=== PATIENT | female | born 1990 | race Caucasian/White ===

== ENCOUNTER 2018-04-23 19:06 | Emergency (ER) | payer MEDICAID, SELFPAY ==
[2018-04-23 19:06] VITALS: BP 156/90; PULSE 74; RESP 16; TEMP 36.8; O2SAT 97; BMI 43.7
--- NOTE | 2018-04-23 19:39 | ED.DCSUM_ITS ---
- ER Visit Summary Date of Service: 04/23/18 Chief Complaint: Dental pain History of Present Illness: The patient is a 27 F with no primary care physician. She reports she is an appointment with the dentist yesterday. She reports that she has pain in her left mandibular second molar that began yesterday. Is throbbing pain senna 10 worsening a 10 currently. Is worsened by eating. She is taken naproxen and Orajel without relief. Is sensitive to hot and cold temperatures. She denies any fever or chills. Physical Examination: Vitals: Stable. Afebrile. Mouth: No trismus. No edema of the floor of the mouth. Pain with percussion of left mandibular second premolar. There is large carry on the medial side of her left mandibular second molar. This tooth is mildly tender to palpation. There is no focal abscess. General: A&O x 3. NAD. Cardiovascular exam: Regular rate and rhythm, no murmur, rub or gallop. Respiratory exam: Clear to auscultation bilaterally. No wheezes or stridor. Abdominal exam: Soft, nontender, nondistended, normal bowel sounds. No peritoneal signs. Extremity: No clubbing, cyanosis, or edema. Emergency Department Course and Treatment: Patient was treated with naproxen, [place], and penicillin. Treatment Plan: Patient will be discharged with the above medications. Instructed follow-up with her dentist tomorrow as previously scheduled. Disposition: To home in improved and stable condition. Impression: 1. Dental pain. This note was generated with [employer]edmo dictation software. It may contain incorrect words, spelling, and punctuation that were not noted in review of the chart prior to signing ED Disposition - Plan for ED Patient: Disposition: Home or Assisted Living Chief Complaint: Dental Instructions: ED Tooth Pain Prescriptions: Hydrocodone/Acetaminophen [[place] 5-325 Tablet] 1 - 2 each PO 4X/DAY PRN PRN 3 Days #12 tablet PRN Reason: Pain Naproxen [Naprosyn] 500 mg PO BID #14 tablet Penicillin V Potassium 500 mg PO 4X/DAY #40 tablet Referrals: Dentist,Your [STAFF PHYSICIAN] - Keep Shlomo appointment
[2018-04-23] MEDS: Penicillin Vk 250 MG Tablet 500 MG PO (19:50)
[2018-04-23] MEDS: Naproxen 250 MG Tablet 500 MG PO (19:50)
[2018-04-23] MEDS: HYDROcodone Bitartrate/Apap 5/325 Tablet PO (19:50)
[2018-04-23 19:53] VITALS: RESP 18
== END 2018-04-23 19:58 | disposition home or self-care (01) ==
PROVIDERS: Emergency Provider Emergency Medicine
DX: K08.89 Other specified disorders of teeth and supporting structures (principal)
CPT/HCPCS: 99283

== ENCOUNTER → 2018-07-13 12:29 | Outpatient (CLI) | payer MEDICAID, SELFPAY ==
[2018-07-13 12:48] LABS: Absolute Lymphocyte Count 1.77 X10^3/ul (0.83-4.51); Absolute Neutrophil Count 7.5 X10^3/uL (2.0-7.7); Basophil# 0.01 X10^3/uL; Basophil% 0.1 % (0-1); Eosinophil# 0.23 X10^3/uL; Eosinophils% 2.2 % (0-5); Hematocrit 37.8 % (37-47); Hemoglobin 12.7 g/dl (12.0-15.0); Lymphocyte # 1.77 X10^3/ul (4.0); Lymphocyte % 17.1 % (19-41); Mean Corp Hgb Conc 33.6 g/gl (32-36); Mean Corpuscular Hgb 29.1 pg (27.0-32.0); Mean Corpuscular Volume 86.7 fL (81-99); Mean Platelet Vol. 10.6 fl (6.2-12.0); Monocyte# 0.78 X10^3/uL; Monocyte% 7.5 % (0-10); Neutrophil # 7.54 X10^3/uL (2.7-7.7); Neutrophil % 72.8 % (47-70); Platelet Count 207 K/mm3 (150-450); RBC Distribution Width CV 13.1 % (11.6-14.6); RBC Distribution Width SD 40.3 fl (35.1-43.9); Red Blood Count 4.36 M/mm3 (4.2-5.4); White Blood Count 10.4 K/mm3 (4.4-11.0)
[2018-07-13 12:52] LABS: POSITIVE COUNT NO; POSITIVE DIFFERENTIAL NO; POSITIVE MORPHOLOGY NO
[2018-07-13 13:08] LABS: Glucose Challenge Gest 1H 50g 126 mg/dL (70-140)
[2018-07-13 14:06] LABS: HIV - WCH Non-Reactive (Nonreactive); Rubella IgG 166.2 IU/mL
[2018-07-14 01:17] LABS: Rapid Plasmin Reagin (RPR) NONREACTIVE (NONREACTIVE)
[2018-07-14 10:52] LABS: HEPATITIS B SURFACE AG Negative (Negative)
== END ==
PROVIDERS: Referring Provider Obstetrics & Gynecology; Visit Provider Obstetrics & Gynecology
DX: Z34.90 Encounter for supervision of normal pregnancy, unspecified, unspecified trimester (principal)
CPT/HCPCS: 36415; 82950; 85025; 86592; 86703; 86762; 86850; 86900; 87340

== ENCOUNTER → 2018-07-13 17:15 | Outpatient (CLI) | payer MEDICAID, SELFPAY ==
[2018-07-13 20:19] LABS: Chlamydia Trachomatis by PCR Negative (Negative); Neisserai gonorrhoeae by PCR Negative (Negative); Probe Check PASS; Sample Adequacy Control PASS; Specimen Processing Control PASS
== END ==
PROVIDERS: Referring Provider Obstetrics & Gynecology; Visit Provider Obstetrics & Gynecology
DX: Z34.90 Encounter for supervision of normal pregnancy, unspecified, unspecified trimester (principal)
CPT/HCPCS: 36415; 82950; 85025; 86592; 86703; 86762; 86850; 86900; 87086; 87088; 87340; 87491; 87591

== ENCOUNTER → 2018-09-19 15:59 | Outpatient (CLI) | payer MEDICAID, SELFPAY ==
[2018-09-19 14:59] VITALS: BMI 47.7
== END ==
PROVIDERS: Referring Provider Obstetrics & Gynecology; Visit Provider Obstetrics & Gynecology
DX: Z36.9 Encounter for antenatal screening, unspecified (principal)
CPT/HCPCS: 36415

== ENCOUNTER → 2018-11-14 10:32 | Outpatient (CLI) | payer MEDICAID, SELFPAY ==
[2018-11-14 10:05] VITALS: BMI 47.7
[2018-11-14 11:15] LABS: Absolute Lymphocyte Count 1.66 X10^3/ul (0.83-4.51); Absolute Neutrophil Count 9.3 X10^3/uL (2.0-7.7); Basophil# 0.02 X10^3/uL; Basophil% 0.2 % (0-1); Eosinophil# 0.25 X10^3/uL; Hematocrit 34.4 % (37-47); Hemoglobin 11.1 g/dl (12.0-15.0); Lymphocyte # 1.66 X10^3/ul (4.0); Lymphocyte % 13.4 % (19-41); Mean Corp Hgb Conc 32.3 g/gl (32-36); Mean Corpuscular Volume 86.6 fL (81-99); Mean Platelet Vol. 10.7 fl (6.2-12.0); Monocyte# 1.11 X10^3/uL; Monocyte% 8.9 % (0-10); Neutrophil # 9.29 X10^3/uL (2.7-7.7); Neutrophil % 74.8 % (47-70); Platelet Count 184 K/mm3 (150-450); RBC Distribution Width CV 13.4 % (11.6-14.6); RBC Distribution Width SD 42.9 fl (35.1-43.9); Red Blood Count 3.97 M/mm3 (4.2-5.4); White Blood Count 12.4 K/mm3 (4.4-11.0)
[2018-11-14 11:16] LABS: POSITIVE COUNT NO; POSITIVE DIFFERENTIAL NO; POSITIVE MORPHOLOGY NO
[2018-11-14 11:34] LABS: Glucose Challenge Gest 1H 50g 186 mg/dL (70-140)
== END ==
PROVIDERS: Referring Provider Obstetrics & Gynecology; Visit Provider Obstetrics & Gynecology
DX: O09.90 Supervision of high risk pregnancy, unspecified, unspecified trimester (principal); Z3A.00 Weeks of gestation of pregnancy not specified
CPT/HCPCS: 36415; 82950; 85025

== ENCOUNTER 2018-12-13 11:00 | Outpatient (RCR) | payer MEDICAID, SELFPAY ==
[2018-11-14 10:05] VITALS: BMI 47.7
[2018-11-28 14:03] VITALS: BMI 47.7
== END 2018-12-14 23:59 ==
LOC: DC 11:00
PROVIDERS: Visit Provider Obstetrics & Gynecology
DX: O24.419 Gestational diabetes mellitus in pregnancy, unspecified control (principal)
CPT/HCPCS: 97802

== ENCOUNTER 2018-12-27 16:35 | Outpatient (CLI) | payer MEDICAID, SELFPAY ==
[2018-12-27 16:31] VITALS: BMI 47.7
[2018-12-27 16:45] VITALS: BMI 51.0
--- NOTE | 2018-12-27 21:58 | OB.TRI.PN ---
Progress Notes Date of Service: 12/27/18 Progress Note: nst secondary to GDMA1 fht 140s moderate variability reactive no decelerations category I tracing [place]: regular GDMA1 fu in office weekly, continue diabetic diet
== END 2018-12-27 17:20 | disposition home or self-care (01) ==
LOC: WPOUT 16:40 → OBT 16:41
PROVIDERS: Referring Provider Obstetrics & Gynecology; Visit Provider Obstetrics & Gynecology
DX: O24.419 Gestational diabetes mellitus in pregnancy, unspecified control (principal); Z3A.00 Weeks of gestation of pregnancy not specified
CPT/HCPCS: 59025; 99218; G0378

== ENCOUNTER → 2019-01-25 17:12 | Outpatient (CLI) | payer MEDICAID, SELFPAY ==
[2019-01-25 13:28] VITALS: BMI 51.0
== END ==
PROVIDERS: Referring Provider Obstetrics & Gynecology; Visit Provider Obstetrics & Gynecology
DX: Z34.93 Encounter for supervision of normal pregnancy, unspecified, third trimester (principal); Z3A.36 36 weeks gestation of pregnancy
CPT/HCPCS: 87077; 87081; 87186

== ENCOUNTER 2019-02-04 17:25 | Outpatient (CLI) | payer MEDICAID, SELFPAY ==
[2019-02-01 13:42] VITALS: BMI 52.2
[2019-02-04 17:50] VITALS: BMI 52.4
[2019-02-04 18:23] LABS: ROM Internal Control Test YES-OK TO RESULT pt. (Internal QC); ROM Patient Test Negative (Negative); Record Kit Lot#, ROM+ J7836
--- NOTE | 2019-02-07 03:51 | OB.TRI.PN ---
Progress Notes Date of Service: 02/04/19 Progress Note: Patient presents for contractions and possible loss fluid heart tones 120s moderate variability reactive no decelerations category 1 tracing [place]: Irregular contractions no cervical change negative rupture of membranes Assessment and plan false labor reactive NST DC home kick counts and labor precautions Laboratory Studies: Laboratory Tests 02/04/19 Range/Units 15:50 Vag Amniotic Fld Detect Negative (Negative)
== END 2019-02-04 18:35 | disposition home or self-care (01) ==
LOC: WPOUT 17:48 → WP 17:49
PROVIDERS: Visit Provider Obstetrics & Gynecology
DX: O47.9 False labor, unspecified (principal); Z3A.00 Weeks of gestation of pregnancy not specified
CPT/HCPCS: 59025; 59050; 84112; 99218; G0378

== ENCOUNTER 2019-02-19 06:25 | Inpatient (IN) | payer MEDICAID, SELFPAY ==
[2019-02-15 14:48] VITALS: BMI 52.4
[2019-02-19 06:48] VITALS: BMI 53.7
[2019-02-19] MEDS: Lactated Ringers 1,000 ML 50 ML IV ×2 (06:55→08:28)
[2019-02-19 07:06] LABS: Bedside Glucose 106 mg/dL (70-110)
[2019-02-19 07:14] LABS: Absolute Lymphocyte Count 2.84 X10^3/ul (0.83-4.51); Absolute Neutrophil Count 8.4 X10^3/uL (2.0-7.7); Basophil# 0.02 X10^3/uL; Basophil% 0.2 % (0-1); Eosinophil# 0.22 X10^3/uL; Eosinophils% 1.7 % (0-5); Hematocrit 36.7 % (37-47); Hemoglobin 12.1 g/dl (12.0-15.0); Lymphocyte # 2.84 X10^3/ul (4.0); Lymphocyte % 22.2 % (19-41); Mean Corpuscular Hgb 27.4 pg (27.0-32.0); Mean Platelet Vol. 11.6 fl (6.2-12.0); Monocyte% 9.4 % (0-10); Neutrophil # 8.42 X10^3/uL (2.7-7.7); Neutrophil % 65.6 % (47-70); Platelet Count 178 K/mm3 (150-450); RBC Distribution Width CV 15.8 % (11.6-14.6); RBC Distribution Width SD 47.2 fl (35.1-43.9); Red Blood Count 4.42 M/mm3 (4.2-5.4); White Blood Count 12.8 K/mm3 (4.4-11.0)
[2019-02-19 07:15] LABS: POSITIVE COUNT NO; POSITIVE DIFFERENTIAL NO; POSITIVE MORPHOLOGY NO
[2019-02-19 08:06] LABS: Bedside Glucose 94 mg/dL (70-110)
[2019-02-19] MEDS: fentaNYL-bupivacaine (epidural) 100 ML BAG EPIDURAL (08:28)
--- NOTE | 2019-02-19 09:10 | PCM.HP.OB ---
- Problem List (1) Active labor at term Status: Acute (2) Depression affecting in third trimester, antepartum Status: Acute Comment: cherylofmaria d (3) Positive GBS test Status: Acute Comment: sonia (4) Gestational diabetes Status: Acute Qualifiers: Comment: diabetic education, blood sugar checks, plan weekly nsts from 32 weeks on and growth us q 4 weeks deliver at 40 weeks (5) , twin with loss of one fetus Status: Acute Comment: lost at 9 weeks; (6) BMI 45.0-49.9, adult Status: Acute Comment: 1 tm glucola nl, healthy weight gain discussed. 32 wk:weekly NST and growth US q4wk (7) Status: Acute Qualifiers: Comment: afp negative. carrier declined. M Anatomy nl (8) Supervision of high-risk Status: Acute Qualifiers: Comment: PRR CIELO 02/17/19 boy Maximino WestbrookGissel Jalen History Date of Admission: 02/19/19 Final CIELO: 02/17/19 Final CIELO Source: US <20 weeks Gestational age: 40 Weeks and 2 Days History of this : This is a 28 year-old, , at 40 weeks gestational age 2 days presents IAL. she has had a complicated by GDMA1 and loss of twin in first trimester. she denies any vb or lof admits good fm. BS is 106 upon arrival. she is 3/80 and wanting an epidural. Medical History: Medical History (Last Reviewed 02/15/19 @ 14:10 by Vanda Mars) History of gestational diabetes Z86.32 Allergies pollen extracts Allergy (Verified 02/19/19 07:15) Other Home Medications: Home Medications vitamin,calcium,jodftwxp-fkbu-euroh acid tablet 1 tab PO DAILY 07/13/18 blood sugar diagnostic strips See Dose Instructions .ROUTE .MEDSUPPLY #100 11/14/18 blood-glucose meter kit See Dose Instructions .ROUTE .MEDSUPPLY #1 11/14/18 lancets 28 gauge See Dose Instructions .ROUTE .MEDSUPPLY #200 11/14/18 sertraline 25 mg tablet 50 mg PO DAILY 11/14/18 Ranitidine HCl [Acid Control] 150 mg PO QHS 12/27/18 Smoking Status: Former smoker Alcohol: None Number of Fetus(es): 1 Heart Tracin moderate variability reactive no decelerations category I tracing [place]: regular History Past Pregnancies: Past PregnanciesPregancy History 3 Elective abortions Hx Para 2 Spontaneous abortions Hx # Term Pregnancies Ectopic pregnancies Hx # Pregnancies Multiple births # of living children Past Pregnancies Del. Date Name GA/Weeks Outcome Route Bth Weight Gen Labor Lgth Anesthesia Del Locatn Provider FOB Unknown 2007 Dariana 39 live - full term 7 lbs Female [facility] Unknown 2014 Gissel 37 live - full term 8lbs Female Dr[facility] Cathryn Guerra [facility] Delivery Date: On 07/13/18 @ 11:51 Mahi Meeks [email or web address] Delivery Date: No notes to display Labs: Mom's Labs & Results 02/19/19 02/19/19 02/19/19 06:50 06:50 07:00 WBC 12.8 H RBC 4.42 Hgb 12.1 Hct 36.7 L MCV 83.0 MCH 27.4 MCHC 33.0 RDW 15.8 H RDW Differential 47.2 H Plt Count 178 MPV 11.6 Immature Gran % (Auto) 0.900 Neut % (Auto) 65.6 Lymph % (Auto) 22.2 [place] % (Auto) 9.4 Eos % (Auto) 1.7 Baso % (Auto) 0.2 Absolute Neuts (auto) 8.4 H Absolute Lymphs (auto) 2.84 Total Counted Not Reportable POC Glucose 106 Blood Type A POSITIVE Antibody Screen NEGATIVE 02/19/19 07:58 WBC RBC Hgb Hct MCV MCH MCHC RDW RDW Differential Plt Count MPV Immature Gran % (Auto) Neut % (Auto) Lymph % (Auto) [place] % (Auto) Eos % (Auto) Baso % (Auto) Absolute Neuts (auto) Absolute Lymphs (auto) Total Counted POC Glucose 94 Blood Type Antibody Screen Course Did the patient receive Yes care? Labs Blood Type: A RH: POSITIVE RPR/VDRL/Syphilis Nonreactive Rubella status Immune HbSAg Negative Date Done: 07/13/18 Chlamydia Negative Gonorrhea Negative HIV/AIDS Non-Reactive Group B Strep: Positive Current Obstetrical History Gestational Diabetes Yes Incompetent Cervix No Infertility No IUGR No Macrosomia No Hypertension/Pre-eclampsia No Placenta Previa/Abruption No PTL/PROM No Uterine anomaly No Oligohydramnios No Polyhydramnios No Multiple gestation Yes: demise at 9 weeks Past Medical History Asthma No Diabetes No Hypertension No Heart disease No Mitral valve prolapse No Neurologic/Seizure disorder/ No Migraines Kidney disease No Liver disease No Varicosities No Clotting disorders/Hx of DVT No Thyroid Dysfunction No Other medical diseases No Psychiatric disorders Yes: depression, anxiety Major trauma No Abnormal PAP smear No Sleep apnea No Mammogram in the last 2 years No Social History Marital Status: Alleged father Jalen Hx Smoking Yes Smoking Status Former smoker Expected Delivery Method: Spontaneous Vaginal Review of Systems Constitutional: Denies: Fever, Malaise Eyes: Denies: Blurred vision, Vision Change HEENT: Denies: Head Aches, Visual Changes Cardiovascular: Denies: Chest Pain, Palpitations Respiratory: Denies: Cough, Shortness of Breath, Wheezing Gastrointestinal: Reports: Abdominal Pain. Denies: Diarrhea, Nausea, Vomiting Genitourinary: Denies: Dysuria, Hematuria Musculoskeletal: Denies: Joint Pain, Muscle pain Skin: Denies: Lesions, Rash Neurological: Denies: Blurred vision, Focal weakness, Headaches Psychiatric: Denies: Anxiety, Depression Endocrine: Denies: Heat/ Cold Intolerance Hematologic/ Lymphatic: Denies: Easy Bruising, Easy Bleeding Physical Exam General: Alert, Cooperative, No apparent distress HEENT: Atraumatic, Normocephalic. Negative for: Thyromegaly, Lymphadenopathy Cardiovascular: Regular rate Lungs: Normal air movement Abdomen: Soft, Non Tender, Gravid Neurological: Deep Tendon Reflexes 2+/4 and Symmetrical, Neuro grossly intact. Negative for: Clonus INFORMATION TECHNOLOGY AUDIT MANAGER: Normal external genitalia. Negative for: Vulvar lesions Estimated gestational size: Appropriate for gestational size Presentation: Cephalic Cervix Dilation (cm): 3 Station: -1 Effacement (%): 80 Assessment/Plan All Active Problems (Last Reviewed 02/15/19 @ 14:10 by Vanda Mars) Active labor at term (Acute) Depression affecting in third trimester, antepartum (Acute) Positive GBS test (Acute) Gestational diabetes (Acute) , twin with loss of one fetus (Acute) BMI 45.0-49.9, adult (Acute) (Acute) Supervision of high-risk (Acute) Complete placenta previa nos or without hemorrhage, second trimester (Resolved) Dichorionic diamniotic twin (Resolved) This is a 28 year-old, at 40 weeks gestational age presents IAL GDMA1 Patient presents IAL, plan expectant management for , pitocin/AROM PRN if needed. Pain management: plans epidural. GBS positive plan IV PCN. Management of any complications: BS management per diabetic protocol I have reviewed the PFSH and made any clinically relevant updates.
[2019-02-19] MEDS: Mag Hydrox/Al Hydrox/Simeth 30 ML UDC PO (09:51)
[2019-02-19] MEDS: Oxytocin 30 units/NS 500 ml 30 UNITS/500 ML IV.SOLN 334 UNITS IV (11:02)
[2019-02-19 11:16] LABS: Bedside Glucose 109 mg/dL (70-110)
[2019-02-19] MEDS: Oxytocin 30 units/NS 500 ml 30 UNITS/500 ML IV.SOLN 167 UNITS IV (11:32)
--- NOTE | 2019-02-19 12:00 | PCM.OPRPT ---
Problem List (1) Active labor at term Status: Acute (2) Depression affecting in third trimester, antepartum Status: Acute Comment: [place] (3) Positive GBS test Status: Acute Comment: sonia (4) Gestational diabetes Status: Acute Qualifiers: Comment: diabetic education, blood sugar checks, plan weekly nsts from 32 weeks on and growth us q 4 weeks deliver at 40 weeks (5) , twin with loss of one fetus Status: Acute Comment: lost at 9 weeks; (6) BMI 45.0-49.9, adult Status: Acute Comment: 1 tm glucola nl, healthy weight gain discussed. 32 wk:weekly NST and growth US q4wk (7) Status: Acute Qualifiers: Comment: afp negative. carrier declined. M Anatomy nl (8) Supervision of high-risk Status: Acute Qualifiers: Comment: PRR CIELO 02/17/19 chepe Maximino MakGissel sweet Jalen Vaginal Delivery Maternal Presentation: Active Labor 28-year-old G3, P2 at 40 weeks 2 days presents in active labor Amniotic Membrane Rupture Type: Artificial Amniotic Fluid Description: Clear Final CIELO: 02/17/19 Gestational age: 40 Weeks and 3 Days Date of Procedure: 02/20/19 Pre-Operative Diagnosis: ial Post-Operative Diagnosis: same Surgery/ Procedure Performed: Spontaneous Vaginal Delivery Type of Anesthesia: Epidural Description of Procedure: Patient began pushing and delivered the head in the AJ presentation. The head was delivered atraumatically . The anterior and posterior shoulders delivered without complication followed by the rest of the and the was placed on the maternal abdomen. Delayed cord clamping was employed for approximately 60 seconds. Cord was clamped and cut and gentle traction was applied to the cord and the placenta delivered spontaneously immediately following it was noted to be intact with three-vessel cord. The perineum and vagina were inspected and noted to have no laceration. EBL was 100 cc. Patient and tolerated delivery well. Presentation: AJ Placental Delivery Description: Spontaneous Placenta Disposition: [facility] Cord Vessel Description: 3 Vessels Cord Entanglement: None Estimated Blood Loss: 100 Infant A gender: Male Episiotomy Description: None Laceration: None Medications given after delivery: IV Pitocin Complications: None
[2019-02-19 12:16] LABS: Bedside Glucose 105 mg/dL (70-110)
[2019-02-19] MEDS: 0.9% Saline Lock 10 ML Syringe IV (12:55)
[2019-02-19 15:42] VITALS: BP 108/56; PULSE 78; RESP 16; TEMP 36.8; O2SAT 98
[2019-02-19] MEDS: Naproxen 250 MG Tablet 500 MG PO (17:20)
[2019-02-19 19:45] VITALS: BP 117/61; PULSE 84; RESP 18; TEMP 36.6; O2SAT 94
[2019-02-19] MEDS: Acetaminophen 500 MG Tablet 1000 MG PO (19:52)
[2019-02-20] VITALS: BP 120/63; PULSE 80; RESP 16; TEMP 36.6; O2SAT 95
[2019-02-20 04:00] VITALS: BP 126/55; PULSE 76; RESP 16; TEMP 36.2; O2SAT 96
[2019-02-20 07:31] LABS: Bedside Glucose 115 mg/dL (70-110)
[2019-02-20 07:40] VITALS: BP 129/59; PULSE 85; RESP 16; TEMP 36.6; O2SAT 97
[2019-02-20] MEDS: Naproxen 250 MG Tablet 500 MG PO ×2 (07:46→16:26)
--- NOTE | 2019-02-20 07:50 | PCM.PN.OB ---
Patient Problems: Active and Suspected Problems (Last Reviewed 02/15/19 @ 14:10 by Vanda Mars) Active labor at term (Acute) Subjective: doing well no complaints pain controlled no CP SOB N V ambulating well tolerating po lochia moderate, bottle feeding - Physical Exam General: Alert, Oriented x3 Abdomen: Soft, Non Tender, - - ff below u Vital Signs Temp Pulse Resp BP Pulse Ox 97.8 F 85 16 129/59 H 97 02/20/19 07:40 02/20/19 07:40 02/20/19 07:40 02/20/19 07:40 02/20/19 07:40 Oxygen Delivery Method Room Air Weight: 323 lb Body Mass Index (BMI) 53.7 Intake and Output for Last 24 Hours 02/18/19 02/19/19 02/20/19 23:59 23:59 23:59 Intake Total 2328 / 2328 Output Total 1500 / 1500 Balance 828 / 828 Laboratory Tests Past 24 Hrs 02/19/19 06:50 Blood Type A POSITIVE Antibody Screen NEGATIVE POC Glucose 02/20/19 02/19/19 02/19/19 07:09 11:58 10:41 POC Glucose 115 H 105 109 02/19/19 07:58 POC Glucose 94 Medical Necessity - Tobacco Use Smoking Status: Former smoker Assessment/Plan All Active Problems (Last Reviewed 02/15/19 @ 14:10 by Vanda Mars) Active labor at term (Acute) Depression affecting in third trimester, antepartum (Acute) Positive GBS test (Acute) Gestational diabetes (Acute) , twin with loss of one fetus (Acute) BMI 45.0-49.9, adult (Acute) (Acute) Supervision of high-risk (Acute) Complete placenta previa nos or without hemorrhage, second trimester (Resolved) Dichorionic diamniotic twin (Resolved) s/p PPD # 1 1. routine post delivery care 2. bottle feeding 3. rh positive 4. rubella immune
--- NOTE | 2019-02-20 07:58 | PCM.DCVAG ---
Additional Instructions: If you experience any of the following, contact your healthcare provider. Bleeding that soaks a pad every hour for 2 hours Fever 100.4 or higher Unrelieved incision or abdominal pain Swelling, redness, discharge or bleeding from your incision or episiotomy site Your incision begins to separate Problems urinating (including inability to urinate or burning while urinating). Visual changes Severe headache Flu-like symptoms Pain or redness in one of both of your breasts Pain, warmth, tenderness or swelling in your legs, especially the calf area Frequent nausea and vomiting Symptoms of depression or anxiety If you experience any of the following, call 911 or go to the nearest Emergency Room. Chest pain Problems breathing Seizure activity Partial or complete paralysis of a body part, slurred speech, weakness or drooping of the face, or a sudden inability to walk or hold your balance Allergies/Adverse Reactions: Allergies pollen extracts Allergy (Verified 02/19/19 07:15) Other Medications to take at Discharge vitamin,calcium,bjimefex-rneo-wmgls acid tablet 1 tab PO DAILY 07/13/18 blood sugar diagnostic strips See Dose Instructions .ROUTE .MEDSUPPLY #100 11/14/18 blood-glucose meter kit See Dose Instructions .ROUTE .MEDSUPPLY #1 ea 11/14/18 lancets 28 gauge See Dose Instructions .ROUTE .MEDSUPPLY #200 11/14/18 sertraline 25 mg tablet 50 mg PO DAILY 11/14/18 Ranitidine HCl [Acid Control] 150 mg PO QHS 12/27/18 Primary Care Physician: Care Physician,No Primary [Primary Care Provider] - Test Results: Test results from this visit will be discussed in further detail at your follow-up appointment, if applicable.
--- NOTE | 2019-02-20 07:59 | DCINST_ITS ---
Additional Instructions: If you experience any of the following, contact your healthcare provider. * Bleeding that soaks a pad every hour for 2 hours * Fever 100.4 or higher * Unrelieved incision or abdominal pain * Swelling, redness, discharge or bleeding from your incision or episiotomy site * Your incision begins to separate * Problems urinating (including inability to urinate or burning while urinating). * Visual changes * Severe headache * Flu-like symptoms * Pain or redness in one of both of your breasts * Pain, warmth, tenderness or swelling in your legs, especially the calf area * Frequent nausea and vomiting * Symptoms of depression or anxiety If you experience any of the following, call 911 or go to the nearest Emergency Room. * Chest pain * Problems breathing * Seizure activity * Partial or complete paralysis of a body part, slurred speech, weakness or drooping of the face, or a sudden inability to walk or hold your balance Allergies/Adverse Reactions: Allergies pollen extracts Allergy (Verified 02/19/19 07:15) Other Medications to take at Discharge vitamin,calcium,zofazxqf-dama-krzqc acid tablet 1 tab PO DAILY 07/13/18 blood sugar diagnostic strips See Dose Instructions .ROUTE .MEDSUPPLY #100 ea 11/14/18 blood-glucose meter kit See Dose Instructions .ROUTE .MEDSUPPLY #1 ea 11/14/18 lancets 28 gauge See Dose Instructions .ROUTE .MEDSUPPLY #200 11/14/18 sertraline 25 mg tablet 50 mg PO DAILY 11/14/18 Ranitidine HCl [Acid Control] 150 mg PO QHS 12/27/18 Primary Care Physician: Care Physician,No Primary [Primary Care Provider] - Test Results: Test results from this visit will be discussed in further detail at your follow- up appointment, if applicable.
[2019-02-20] MEDS: Famotidine 20 MG Tablet PO ×2 (10:25→21:30)
[2019-02-20 12:17] VITALS: BP 123/53; PULSE 72; RESP 18; TEMP 36.6; O2SAT 96
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
[2019-02-20 16:30] VITALS: BP 135/76; PULSE 83; RESP 16; TEMP 36.5; O2SAT 98
[2019-02-20 19:40] VITALS: BP 120/70; PULSE 83; RESP 18; TEMP 36.3; O2SAT 98
[2019-02-20] MEDS: Acetaminophen 500 MG Tablet 1000 MG PO (21:30)
--- NOTE | 2019-02-20 22:52 | NURSING ---
1940-pt states she is feeling some burning when she voids, enc to spray perinuem at sthe same time and see if this helps
[2019-02-21 01:05] VITALS: BP 130/54; PULSE 85; RESP 20; TEMP 36.6
[2019-02-21] MEDS: Naproxen 250 MG Tablet 500 MG PO (01:23)
--- NOTE | 2019-02-21 02:05 | EKG12_ITS ---
Test Reason : CP W/ACTIVITY Blood Pressure : / mmHG Vent. Rate : 080 BPM Atrial Rate : 080 BPM P-R Int : 152 ms QRS Dur : 082 ms QT Int : 346 ms P-R-T Axes : 033 052 028 degrees QTc Int : 399 ms Normal sinus rhythm Normal ECG No previous ECGs available Confirmed by SHANELL JAMES ([id number]), desk editor TIMOTHY MURRY ([id number]) on 02/26/2019 2:27:02 PM Referred By: Mahi Meeks Confirmed By:MISHA JAMES
--- NOTE | 2019-02-21 02:51 | NURSING ---
0251-dr marie on unit made aware of pt chest discomfort when up walking or when wiping, order for ekg to be done now.
--- NOTE | 2019-02-21 07:57 | PCM.PN.OB ---
Patient Problems: Active and Suspected Problems (Last Reviewed 02/15/19 @ 14:10 by Vanda Mars) Active labor at term (Acute) Subjective: doing well no complaints pain controlled no CP SOB N V ambulating well tolerating po lochia moderate, bottle feeding - Physical Exam General: Alert, Oriented x3 Abdomen: Soft, Non Tender, - - FF below U Vital Signs Temp Pulse Resp BP Pulse Ox 97.8 F 85 20 H 130/54 H 98 02/21/19 01:05 02/21/19 01:05 02/21/19 01:05 02/21/19 01:05 02/20/19 19:40 Oxygen Delivery Method Room Air Weight: 323 lb Body Mass Index (BMI) 53.7 Intake and Output for Last 24 Hours 02/19/19 02/20/19 02/21/19 23:59 23:59 23:59 Intake Total 2328 / 2328 Output Total 1500 / 1500 Balance 828 / 828 Medical Necessity - Tobacco Use Smoking Status: Former smoker Assessment/Plan All Active Problems (Last Reviewed 02/15/19 @ 14:10 by Vanda Mars) Active labor at term (Acute) Depression affecting in third trimester, antepartum (Acute) Positive GBS test (Acute) Gestational diabetes (Acute) , twin with loss of one fetus (Acute) BMI 45.0-49.9, adult (Acute) (Acute) Supervision of high-risk (Acute) Complete placenta previa nos or without hemorrhage, second trimester (Resolved) Dichorionic diamniotic twin (Resolved) s/p PPD # 2 1. routine post delivery care 2. bottle feeding 3. rh positive 4. rubella immune 5. home today if baby's jaundice improved 6. GDM:glucose wnl
[2019-02-21 08:00] VITALS: BP 105/74; PULSE 78; RESP 17; TEMP 36.7; O2SAT 99
[2019-02-21] MEDS: Acetaminophen 500 MG Tablet 1000 MG PO (11:34)
[2019-02-21] MEDS: Famotidine 20 MG Tablet PO (11:35)
[2019-02-21] MEDS: Sertraline 50 MG Tablet PO (11:35)
[2019-02-21 13:55] VITALS: BP 105/74; PULSE 70; RESP 16; TEMP 36.7; O2SAT 98
--- NOTE | 2019-02-21 15:30 | CASEMGMT ---
Social Work Labor and Delivery Unit Date of intervention: 02.21.2019 Chart reviewed and talked with RN this date. RN reports mother of baby (MOB) and and reported father of baby (FOB) have been taking care of baby?s feeding needs today. RN reports it was passed on in report that family was found to have put hospital blankets and baby wraps into personal home going bags, to which staff addressed with the parents. Met with MOB and reported FOB in the room. Let MOB know that hospital can send some formula home but will not be enough for 2 days. Explored with MOB what wants to do. Reviewed local options to explore. MOB mentioned that maybe FOB can go down to [facility] and apply for help today, and wonders if this engineering writer can call [facility] to see if willing to help out before FOB goes to said agency. This engineering writer asked MOB to first call [facility] and see if can get into [place] tomorrow. MOB called [place] while this engineering writer in the room. Per MOB, MOB is allowed to go to walk in hours tomorrow, , to get formula. No need then to call people [facility] people for help as hospital able send formula home to the parents through until [facility] tomorrow. This engineering writer let MOB and FOB know that this engineering writer needs to call children services due to yesterday's reports about Dariana. This engineering writer inquired whether MOB and FOB do have the needed supplies to care for baby at home. Both report in the affirmative. FOB asked if there is any place to help with gas money to go to doctors appointments. Let FOB know that sometimes local agencies help out but that MOB does have transportation via insurance. This engineering writer called [facility] ([facility] after MOB and baby left the hospital. Reported concerns regarding oldest child Dariana (see original assessment for details). Also reported concerns about MOB and FOB needing reinforcement and teaching on proper feeding of baby, but that family was receptive to teaching. Reported concerns about level of support for this family and appearing limited finances that may impact ability to care for baby (such as no money and no outside support identified to help with formula, and MOB needing this engineering writer to help direct family what to do to find formula). Rosalva will take concerns to group screening tomorrow and determine whether [facility] will intervene with family. No other services requested or indicated. MOB and baby are discharged home. Community resources lists provided today that include financial, correction, counseling, and in-kind help, Community Action brochure given, and depression packet and resources provided. [facility] referral being made with MOB?s verbal permission. -SAMINA Whitney, FORMER HAND
--- NOTE | 2019-02-22 11:51 | CASEMGMT ---
Social Work Labor and Delivery [facility] referral submitted via [facility]'s secure web based system. -SAMINA Whitney, MANUFACTURING MAINTENANCE MECHANIC
--- NOTE | 2019-02-27 18:52 | NURSING ---
Follow up call done patient states her bottom is still very sore, denies other complaints. advised patient she can take otc motrin along with her tylenol to atlernate and to call dr if the pain is still bothering her. denies odor or drainage. satisfied with care and denies questions or concerns
== END 2019-02-21 13:55 | disposition home or self-care (01) | DRG 560 ==
PROVIDERS: Admitting Provider Obstetrics & Gynecology; Referring Provider Obstetrics & Gynecology; Visit Provider Obstetrics & Gynecology
DX: O24.429 Gestational diabetes mellitus in childbirth, unspecified control (principal); O99.824 Streptococcus B carrier state complicating childbirth; O31.13X0 Continuing pregnancy after spontaneous abortion of one fetus or more, third trimester, not applicable or unspecified; O99.344 Other mental disorders complicating childbirth; F32.9 Major depressive disorder, single episode, unspecified; Z79.899 Other long term (current) drug therapy; Z87.891 Personal history of nicotine dependence; Z3A.40 40 weeks gestation of pregnancy; Z37.0 Single live birth
CPT/HCPCS: 59050; 82962; 85025; 86850; 86900; 93005; 99218; J7120; A4216; G0378

== ENCOUNTER → 2020-04-22 | Outpatient (CLI) | payer MEDICAID, SELFPAY ==
[2020-04-22 14:56] VITALS: BMI 53.7
[2020-04-30 04:19] LABS: HPV APTIMA, High Risk Negative (Negative)
== END | disposition home or self-care (01) ==
LOC: LABSPEC 16:04
PROVIDERS: Referring Provider Nurse Practitioner Women's Health; Visit Provider Nurse Practitioner Women's Health
DX: Z12.4 Encounter for screening for malignant neoplasm of cervix (principal)
CPT/HCPCS: 87624; 88175; G0145

== ENCOUNTER 2020-06-03 17:47 | Emergency (ER) | payer MEDICAID, SELFPAY ==
[2020-04-22 14:56] VITALS: BMI 53.7
[2020-06-03 17:48] VITALS: BP 160/90; PULSE 89; RESP 18; TEMP 36.2; O2SAT 98; BMI 52.4
--- NOTE | 2020-06-03 18:03 | ED.DCSUM_ITS ---
- ER Visit Summary Date of Service: 06/03/20 Chief Complaint: Dental pain History of Present Illness: The patient is a 29 F with no primary care physician. She reports that she has pain in her right maxillary second molar that began 4 days ago. States that she actually has an appointment at [facility] to have this tooth pulled in 6 days. She describes the pain as stabbing. Is 1010 at worst 9-10 currently. Is worsened by eating. Is relieved by Aleve. She does complain of hot and cold sensitivity. She denies any facial swelling. No fever, chills, nausea, vomiting, or other constitutional symptoms. Physical Examination: Vitals: Stable. Afebrile. Mouth: No trismus. No edema of the floor of the mouth. Pain with percussion of right maxillary second molar. The posterior third of this tooth is eroded away. There is no focal abscess. General: A&O x 3. NAD. Cardiovascular exam: Regular rate and rhythm, no murmur, rub or gallop. Respiratory exam: Clear to auscultation bilaterally. No wheezes or stridor. Abdominal exam: Soft, nontender, nondistended, normal bowel sounds. No peritoneal signs. Extremity: No clubbing, cyanosis, or edema. Emergency Department Course and Treatment: An OARRS report was obtained which wa s negative. The patient was treated penicillin and [place]. Treatment Plan: Patient is instructed to continue her Aleve. Use penicillin and [place] in addition to this. Follow-up her dentist soon as possible. Return to the emergency department for any worsening symptoms. Disposition: To home in improved and stable condition. Impression: 1. Dental pain. This note was generated with Edgeio dictation software. It may contain incorrect words, spelling, and punctuation that were not noted in review of the chart prior to signing ED Disposition - Plan for ED Patient: Instructions: ED Tooth Pain Prescriptions: Hydrocodone Bitart/Apap 5-325 [[place] 5MG-325MG] 1 tab PO Q4H PRN PRN 2 Days #10 tab PRN Reason: Pain Prescription Printed Penicillin V Potassium 500 mg PO 4X/DAY #40 tab Prescription Printed Referrals: Dentist,Your [STAFF PHYSICIAN] - As soon as possible
[2020-06-03] MEDS: HYDROcodone Bitartrate/Apap 5/325 Tablet PO (18:18)
[2020-06-03] MEDS: Penicillin Vk 250 MG Tablet 500 MG PO (18:19)
== END 2020-06-03 18:27 | disposition home or self-care (01) ==
LOC: ED 18:16
PROVIDERS: Emergency Provider Emergency Medicine
DX: K08.89 Other specified disorders of teeth and supporting structures (principal); F17.290 Nicotine dependence, other tobacco product, uncomplicated
CPT/HCPCS: 99283

== ENCOUNTER 2020-08-19 05:48 | Day surgery (SDC) | payer MEDICAID, SELFPAY ==
[2020-07-15 14:04] VITALS: BMI 52.4
[2020-08-12 13:56] LABS: Hematocrit 42.7 % (37-47); Hemoglobin 13.7 g/dL (12.0-15.0); Mean Corp Hgb Conc 32.1 g/dL (32-36); Mean Corpuscular Hgb 28.7 pg (27.0-32.0); Mean Corpuscular Volume 89.5 fL (81-99); Platelet Count 228 K/mm3 (150-450); RBC Distribution Width CV 12.7 % (11.6-14.6); RBC Distribution Width SD 41.5 fl (35.1-43.9); Red Blood Count 4.77 M/mm3 (4.2-5.4); White Blood Count 10.1 K/mm3 (4.4-11.0)
[2020-08-12 16:05] VITALS: BMI 52.5
[2020-08-19] VITALS (8 sets, daily range): BP systolic 85–122; BP diastolic 40–73; PULSE 72–96; RESP 14–16; TEMP 36.2–36.8; O2SAT 91–98; BMI 52.8
[2020-08-19 06:17] LABS: Internal QC Validated? YES +Cl - CLEAR BKGD; Pregnancy, Urine Negative Negative
[2020-08-19] MEDS: Lactated Ringers 1,000 ML 100 ML IV ×2 (06:27→09:23)
--- NOTE | 2020-08-19 07:17 | HP.PCM_ITS ---
- Problem List (1) IUD (intrauterine device) in place Status: Acute Comment: Elly 06/2019 (2) depression Status: Acute Comment: umer matias History and Physical Date of Admission: 08/19/20 Intake Vital Signs 08/12/20 Height 5 ft 5 in 08/12/20 Weight: 316 lb 08/12/20 BMI 52.5 08/12/20 BP 120/90 H Intake Visit Reasons: LBS preop Chief Complaint: pre op LBS Bag Checker Required: No Is patient in pain?: No Allergies pollen extracts Allergy (Verified 08/12/20 16:06) Other Medications venlafaxine 225 mg tablet,extended release 24 hr 225 mg PO DAILY #90 tab 04/22/20 [Rx Confirmed 08/12/20] Melatonin 6 mg PO QHS 08/11/20 [History Confirmed 08/12/20] Is last menstrual period known: No Post menopausal: No Patient : No : No [facility] Medical History History of gestational diabetes (Acute) Family History Mother Diabetes Social History (Updated 08/12/20 @ 16:[address] Mahi Meeks MD) Smoking Status: Current every day smoker Electronic Cigarette Use: with nicotine alcohol intake: current details: occasionally substance use type: does not use caffeine: Yes what type of physical activity do you participate in: walking frequency: 3-4 times per week seatbelt use: always do you feel safe at home: Yes additional social history: -Boyfriend Patient is unemployed HPI LBS preop: Details: KRISTINA DAY is a 29 year old who presents for preop appointment. Pregancy History 3 Elective abortions Hx Para 2 Spontaneous abortions Hx # Term Pregnancies Ectopic pregnancies Hx # Pregnancies Multiple births # of living children 3 Past Pregnancies Del. Date Name GA/Weeks Outcome Route Bth Weight Gen Labor Lgth Anest hesia Del Locatn Provider FOB Unknown 2007 Dariana 39 live - full term 7 lbs Fem sven [facility] Unknown 2014 Gissel 37 live - full term 8lbs Fema seema Guerra [facility] 02/19/19 Maximino 40 live - full term NS VD Male epidural [facility] Delivery Date: No notes to display Delivery Date: gdma1 Mahi Meeks Delivery Date: 02/19/19 GDMA, loss twin at 10 weeks gestation Vanda Mars Const Constitutional: Denies fatigue, fever(s), headache(s), increased appetite, poor appetite, weight gain or weight loss ENT ENT: Denies dry mouth GI GI: Reports as per HPI; denies abdominal pain, constipation, nausea or vomiting : Reports as per HPI; denies difficulty urinating, painful urination, blood in urine, nipple discharge, pelvic pain, urinary frequency, urinary incontinence, urinary hesitancy, urinary urgency, vaginal discharge, vaginal dryness, vaginal odor, vaginal itching or other Skin Skin/Breast: Denies hair loss, change in hair, dry skin, breast lump, breast pain, breast skin changes or nipple discharge Exam Const General: cooperative, healthy appearing, no acute distress, well developed Nutritional Appearance: obese Orientation: alert, oriented to person, oriented to place HENRI Head: normal to inspection Neck Neck: normal visual inspection Thyroid: thyroid normal Lymphatic: no lymphadenopathy noted Chest Breast inspection: normal inspection of the breasts, normal inspection of the axillae Breast palpation: normal palpation of the breasts, normal palpation of the axillae, no axillary lymphadenopathy Resp Effort & Inspection: normal respiratory effort GI Palpation: soft, no masses, nontender Rectal Exam: deferred External Female Exam: normal external appearance, normal appearance of the urethra Urethra: normal appearance of the urethra, normal palpation Speculum Exam - Vagina: normal appearance of the vagina, normal vaginal discharge Speculum Exam - Cervix: normal appearance of the cervix (strings at os) Bimanual Exam- Vagina & Uterus: normal bimanual exam, uterine size normal, uterine shape normal, uterus non-tender Bimanual Exam- Adnexa, other: normal adnexae, no adnexal masses, pelvic support normal, adnexae non-tender Pelvic Support: normal Neuro General: alert, oriented x3 Psych Affect: normal affect Assessment & Plan Problems 1. IUD (intrauterine device) in place Z97.5 Liletta 06/2019 2. Sterilization Z30.2 Plan After discussing the patient's diagnosis and treatment plan options, patient wishes to proceed with surgical management. I have discussed with the patient the risks, benefits, and alternatives of the procedure which include but are not limited to risks of anesthesia, bleeding, infection, possible damage to bowel, bladder, or surrounding vasculature which could lead to additional surgery to evaluate any complications. Patient agrees to procedure and wishes to proceed. ACOG/uptodate references given for additional information regarding procedure. Coding Level of Care Code No Charge Diagnoses IUD (intrauterine device) in place Z97.5 Sterilization Z30.2 UPDATE- I have seen the patient and performed any clinically relevant updates to the history and physical exam. Mahi Meeks MD
--- NOTE | 2020-08-19 07:30 | FALS_PTH ---
PATIENT: KRISTINA MISHRA LOC: [facility] U#:[id number] AGE/SX: 29/F ROOM: RE08/19/[address]: Dr. Mahi Meeks MD : 1990 BED: DIS: 08/19/2020 SPEC #: [id number] RECD: 08/19/20 08:16 STATUS: MILLA SARMAD #: [id number] ROXANNA: 08/19/20 07:[address]: Mahi Meeks DEPT: SURGICAL PATHOLOGY RECD BY: Fide Perez ENTERED: 08/19/20 08:57 SP TYPE: FALL TUBES OTHR DR: Violeta Primary Care Phys Tissues: Fallopian tube Procedures: Surgery Specimen Level II HEADER OPERATION: Laparoscopic salpingectomy PRE-OP DIAGNOSIS: Elective sterilization TISSUE SUBMITTED: Bilateral fallopian tubes MICROSCOPIC DIAGNOSIS Bilateral fallopian tubes, salpingectomy: Bilateral fallopian tubes including fimbrial ends, no pathologic diagnosis. SJ:petros 08/20/20 MICROSCOPIC DESCRIPTION Slides are reviewed. GROSS DESCRIPTION Received in fixative is one container labeled with the patient's name and designated bilateral fallopian tubes. The specimen consists of bilateral fallopian tubes including fimbrial ends each measuring 7 cm in length and up to 0.5 cm in diameter. The fallopian tubes are not identified as right or left. Sections reveal unremarkable cut surfaces. Credit Review Manager sections are submitted in two cassettes with each cassette containing one fallopian tube. / MARIANELA:petros 08/19/20 TC:4 [facility]: [id number] x2
[2020-08-19] MEDS: Bupivacaine 0.25% 30 ML Vial (08:00)
--- NOTE | 2020-08-19 08:15 | OP.PCM_ITS ---
Problem List (1) IUD (intrauterine device) in place Status: Acute Comment: Elly 06/2019 (2) depression Status: Acute Comment: umer matias Report of Operation Date of Procedure: 08/19/20 Pre-Operative Diagnosis: sterilization Post-Operative Diagnosis: same Surgery/Procedure Performed:: laparoscopic bilateral salpingectomy controls design engineer: Simona Fragoso Type of Anesthesia:: General Special Medications: none Specimen's removed: tubes Drains: none Estimated Blood Loss (mL): 10 Fluids Replaced: crystalloid Description of Procedure: Patient was taken in the operating room and was placed under general anesthesia was prepped and draped in normal sterile fashion in the dorsal lithotomy position. Bladder was drained of clear urine and SCDs were on preoperatively. Uterus was sounded and a uterine manipulator was placed after dilating. Attention was then paid to the abdominal portion of the procedure and the umbilicus was elevated with towel clamps and injected with Marcaine and after a 5 mm incision was made and the Veress needle was entered into the abdomen confirmed to be intra-abdominal with a low opening pressure of less than 5 mmHg. Abdomen was insufflated with CO2 gas and a 5 mm optical trocar was placed under direct visualization. A left lower quadrant 5 mm port and a 5 mm port suprapubically were placed under direct visualization. Uterus was well visualized and bilateral fallopian tubes identified and bilateral tubes were elevated and transecting across the mesosalpinx and the attachment to the uterine corpus bilaterally the tubes were removed without complication. Excellent hemostasis was noted. Fallopian tubes were removed through the lower port sites without complication. Liver and upper abdomen were visualized notably within normal limits and no other gross abnormalities were seen in the abdomen. All instruments removed from the abdomen after gas was desufflated. Port sites were closed with 3-0 Monocryl Steri's and op sites were applied. All instruments removed from the vagina and patient was awoken and taken recovery in stable condition. Grafts/Implants Used: none - Complications none - Admit VTE Documentation VTE Present on Admission: No VTE Mechan Device Prophylaxis: SCD's Multi Select Codes - Urinary/Genital Urinary/Genital CPT Codes: 06874 Laproscopic BS/O
--- NOTE | 2020-08-19 08:18 | DCINST_ITS ---
Discharge Diet: No Restrictions - Increase fluid intake for the next 48 hours. Discharge Activity: Return to Normal Activity, May Drive - when you are no longer taking narcotic pain medications., May Shower, May Take a Tub Bath - in 7 days Additional Activity Instructions:: Ambulate often the next week after surgery. Nothing in the vagina for 5 days. Call your doctor if your incision/area has: Continuous Slow Oozing, Sudden Increased Bleeding, Increased Pain/ Swelling, Increased Redness, Foul Smelling Discharge Call your doctor if you observe: Fever of 101 or Higher Allergies/Adverse Reactions: Allergies pollen extracts Allergy (Verified 08/19/20 06:02) Other Medications to take at Discharge venlafaxine 225 mg tablet,extended release 24 hr 225 mg PO DAILY #90 tab 04/22/20 Melatonin 6 mg PO QHS 08/11/20 Naproxen [Naprosyn] 250 - 500 mg PO Q8H PRN PRN #30 tab 08/19/20 Oxycodone HCl/Acetaminophen [Percocet 5-325] 1 - 2 tablet PO Q6H PRN PRN 7 Days #10 tablet 08/19/20 The following prescriptions were given: Naproxen [Naprosyn] 250 - 500 mg PO Q8H PRN PRN #30 tab PRN Reason: MILD PAIN Transmission Status: Pending to [facility] Oxycodone HCl/Acetaminophen [Percocet 5-325] 1 - 2 tablet PO Q6H PRN PRN 7 Days #10 tablet PRN Reason: Pain Transmission Status: Sent to [facility] Primary Care Physician: Care Physician,No Primary [Primary Care Provider] - Test Results: Test results from this visit will be discussed in further detail at your follow- up appointment, if applicable. Please Follow Up With: Mahi Meeks MD - [phone]
--- NOTE | 2020-08-19 08:19 | DCINST_ITS ---
Discharge Diet: No Restrictions - Increase fluid intake for the next 48 hours. Discharge Activity: Return to Normal Activity, May Drive - when you are no longer taking narcotic pain medications., May Shower, May Take a Tub Bath - in 7 days Additional Activity Instructions:: Ambulate often the next week after surgery. Nothing in the vagina for 5 days. Call your doctor if your incision/area has: Continuous Slow Oozing, Sudden Increased Bleeding, Increased Pain/ Swelling, Increased Redness, Foul Smelling Discharge Call your doctor if you observe: Fever of 101 or Higher Additional Instructions: If you experience any of the following, contact your healthcare provider. * Bleeding that soaks a pad every hour for 2 hours * Fever 100.4 or higher * Unrelieved incision or abdominal pain * Swelling, redness, discharge or bleeding from your incision or episiotomy site * Your incision begins to separate * Problems urinating (including inability to urinate or burning while urinating). * Visual changes * Severe headache * Flu-like symptoms * Pain or redness in one of both of your breasts * Pain, warmth, tenderness or swelling in your legs, especially the calf area * Frequent nausea and vomiting * Symptoms of depression or anxiety If you experience any of the following, call 911 or go to the nearest Emergency Room. * Chest pain * Problems breathing * Seizure activity * Partial or complete paralysis of a body part, slurred speech, weakness or drooping of the face, or a sudden inability to walk or hold your balance Allergies/Adverse Reactions: Allergies pollen extracts Allergy (Verified 08/19/20 06:02) Other Medications to take at Discharge venlafaxine 225 mg tablet,extended release 24 hr 225 mg PO DAILY #90 tab 04/22/20 Melatonin 6 mg PO QHS 08/11/20 Naproxen [Naprosyn] 250 - 500 mg PO Q8H PRN PRN #30 tab 08/19/20 Oxycodone HCl/Acetaminophen [Percocet 5-325] 1 - 2 tablet PO Q6H PRN PRN 7 Days #10 tablet 08/19/20 The following prescriptions were given: Naproxen [Naprosyn] 250 - 500 mg PO Q8H PRN PRN #30 tab PRN Reason: MILD PAIN Transmission Status: Pending to [facility] Oxycodone HCl/Acetaminophen [Percocet 5-325] 1 - 2 tablet PO Q6H PRN PRN 7 Days #10 tablet PRN Reason: Pain Transmission Status: Sent to [facility] Primary Care Physician: Care Physician,No Primary [Primary Care Provider] - Test Results: Test results from this visit will be discussed in further detail at your follow- up appointment, if applicable.
== END 2020-08-19 10:44 | disposition home or self-care (01) ==
LOC: SDC 05:48 → AC 05:48
PROVIDERS: Anesthesiology; Referring Provider Obstetrics & Gynecology; Visit Provider Obstetrics & Gynecology
PROC: (CPT 58661; principal; 2020-08-19 07:15)
DX: Z30.2 Encounter for sterilization (principal); Z97.5 Presence of (intrauterine) contraceptive device; Z11.59 Encounter for screening for other viral diseases; F53.0 Postpartum depression; E66.9 Obesity, unspecified; Z68.43 Body mass index [BMI] 50.0-59.9, adult; Z79.899 Other long term (current) drug therapy; F17.290 Nicotine dependence, other tobacco product, uncomplicated
CPT/HCPCS: 00840; 58661; 36415; 81025; 85027; 86850; 86900; 86901; 87635; 88302; C9803; J7120; J2405; U0003

== ENCOUNTER 2021-06-23 20:38 | Emergency (ER) | payer MEDICAID, SELFPAY ==
[2021-06-23 20:40] VITALS: BP 138/91; PULSE 85; RESP 16; TEMP 36; O2SAT 95; BMI 48.0
[2021-06-23 20:42] VITALS: BP 138/91; PULSE 84; PULSE 86; RESP 16; RESP 18; TEMP 36; O2SAT 96; O2SAT 98
[2021-06-23 20:59] LABS: Mucous, Urine 0 SEEN /hpf (<or=2+)
[2021-06-23 21:08] LABS: Color, Urine Yellow (Yellow); Glucose, Dipstick Normal (Normal); Ketone-Dipstick 5 mg/dl (Negative); Leukocyte Esterase-Dipstick 500 /ul (Negative); Nitrite-Dipstick Negative (Negative); Occult Blood-Urine 250 /ul (Negative); Protein-Dipstick 100 mg/dl (Negative); Specific Gravity, Urine 1.025 (1.002-1.030); Urine Bilirubin Dipstick Negative (Negative); Urine Clarity Cloudy (Clear); Urine Urobilinogen Normal (Normal)
[2021-06-23 21:35] LABS: Bacteria 2+ /hpf (None Seen); Red Blood Cells-Urine 25-50 SEEN /hpf (0-5); White Blood Cells >100 SEEN /hpf (0-5)
[2021-06-23 21:36] LABS: Internal QC Validated? YES +Cl - CLEAR BKGD; Pregnancy, Urine Negative Negative; Squamous Epithelial Cells - UA 0-5 SEEN /hpf (5-10)
== END 2021-06-23 21:40 | disposition left against medical advice (07) ==
LOC: ED 21:45
DX: Z53.21 Procedure and treatment not carried out due to patient leaving prior to being seen by health care provider (principal)
CPT/HCPCS: 81001; 81025

== ENCOUNTER 2022-06-15 22:39 | Emergency (ER) | payer MEDICAID, SELFPAY ==
[2022-06-15 22:43] VITALS: BP 127/87; PULSE 83; RESP 17; TEMP 36.6; O2SAT 98; BMI 41.5
[2022-06-16] VITALS: BP 132/84; PULSE 66; RESP 20; TEMP 36.9; O2SAT 99
--- NOTE | 2022-06-16 00:35 | RAD_ITS ---
STUDY: X-RAY CHEST REASON FOR EXAM: Female, 31 years old. cough TECHNIQUE: Single AP portable view of the chest. COMPARISON: None. FINDINGS: The lungs are clear and expanded. There is no demonstrated pleural abnormality. Normal size heart. Normal mediastinum and jame. Normal visualized pulmonary arteries. Normal visualized aortic arch and descending thoracic aorta. Normal visualized thoracic spine. Normal visualized ribs, clavicles, and shoulders. There is no demonstrated abnormality of the visualized soft tissue structures of the upper abdomen. RAD/Chest 1 View (Portable) IMPRESSION: Normal x-ray examination of the chest. Electronically Signed: Peter Diallo MD at 1:16 EDT ,
[2022-06-16 02:09] VITALS: BP 120/71; PULSE 71; RESP 18; O2SAT 97
--- NOTE | 2022-06-16 02:10 | EX.ED.DYSGE1 ---
HPI History of Present Illness Chief Complaint: General Illness Narrative Narrative: Patient is a 31-year-old female with past medical history of depression who presents with 5 to 7 days of nasal congestion sore throat and cough. Patient states that she took a home COVID test when she first began feeling sick roughly a week ago and this was negative. She reports that since that time she has had increasing symptoms and secondary to this comes in for evaluation [facility] Medical History (Updated 06/16/22 @ 02:[address] Cresencio Simth, DO) History of gestational diabetes Home Medications melatonin 3 mg tablet 6 mg PO QHS 08/11/20 [History Last Taken Unknown] naproxen 250 mg tablet 250 - 500 mg PO Q8H PRN PRN MILD PAIN #30 tabs 08/19/20 [Rx Last Taken Unknown] levonorgestrel 20.1 mcg/24 hrs (6 yrs) 52 mg intrauterine device (Liletta) 1 device intrauterine ONCE 04/23/21 [History Last Taken Unknown] venlafaxine 225 mg tablet,extended release 24 hr 225 mg PO DAILY #90 tabs 04/23/21 [Rx Last Taken Unknown] azelastine 137 mcg (0.1 %) nasal spray aerosol 2 spray intranasal BID #30 mL 06/16/22 [Rx Last Taken Unknown] prednisone 20 mg tablet 40 mg PO DAILY 5 days #10 tabs 06/16/22 [Rx Last Taken Unknown] promethazine 6.25 mg-codeine 10 mg/5 mL syrup 5 ml PO 4X/DAY PRN PRN cough 7 days #140 mL 06/16/22 [Rx Last Taken Unknown] promethazine 6.25 mg-codeine 10 mg/5 mL syrup 5 ml PO 4X/DAY PRN PRN cough 7 days #140 mL 06/16/22 [Rx Last Taken Unknown] Allergy/AdvReac Type Severity Reaction Status Date / Time pollen extracts Allergy Other Verified 06/15/22 22:47 Family History Mother Diabetes Surgical History H/O bilateral salpingectomy (~08/19/20) Social History Smoking Status: Current every day smoker tobacco type: e-cigarettes Electronic Cigarette Use: with nicotine alcohol intake: current details: occasionally substance use type: does not use caffeine: Yes what type of physical activity do you participate in: walking frequency: 3-4 times per week seatbelt use: always do you feel safe at home: Yes additional social history: -Boyfriend Patient is unemployed ROS ROS ED Constitutional Constitutional ED: Reports chills, fever(s) and subjective ENT ENT ED: Reports ear pain, rhinorrhea and sore throat Cardiovascular Cardiovascular: Denies chest pain Respiratory/Chest Respiratory/Chest: Reports cough; Denies dyspnea Gastrointestinal Gastrointestinal: Denies abdominal pain, diarrhea, nausea or vomiting Genitourinary Genitourinary ED: Denies dysuria Musculoskeletal Musculoskeletal: Reports myalgias Integumentary Denies rash Neurologic Neurologic: Denies headache(s) Hematologic/Lymphatic Hematologic/Lymphatic: Denies easy bleeding or easy bruising EXAM Physical Exam Const Vital Signs: 06/15/22 22:43 06/16/22 00:00 06/16/22 00:00 Temperature 97.8 F 98.4 F Temperature Source Temporal Temporal Pulse Rate 83 66 Respiratory Rate 17 20 H Respiratory Effort Normal Respiratory Pattern Normal Blood Pressure 127/87 H 132/84 H Blood Pressure Mean 100 100 Pulse Ox 98 99 Oxygen Delivery Method Room Air Room Air Positive well nourished and well developed General Appearance ED: well developed HEENT Reports moist mucous membranes HEENT Narrative: Nasal mucosa is hyperemic and boggy with enlarged inferior nasal turbinates. There is cobblestoning the posterior pharynx consistent with sinus drainage but no airway edema or compromise. Bilateral TMs are retracted without secondary changes to suggest infection Eyes PERRL and EOMs intact bilaterally Neck supple Neck Narrative: Positive anterior cervical lymphadenopathy noted Resp normal respiratory effort and clear to auscultation bilaterally Cardio regular rate and regular rhythm Extremity normal to inspection Neuro oriented x3 and CN's II-XII intact bilaterally Sensorium / Orientation: alert Psych mental status grossly normal Skin no rashes or lesions noted MDM MDM MDM Narrative Medical decision making narrative: Patient presented to the ER afebrile and in no acute respiratory distress. Her constellation of symptoms is consistent with a viral infection. With concern this could be COVID or influenza rapid swab was obtained as well as a chest x-ray. Chest x-ray revealed no acute infiltrate and viral swabs are negative. On reevaluation she is resting comfortably and remains no acute distress. Therefore she will be placed on symptomatic medications and is otherwise safe for discharge Radiography Diagnostic Testing: Clinical Impression(s) from Imaging Studies Chest X-Ray 06/16/22 00:35 IMPRESSION: Normal x-ray examination of the chest. Electronically Signed: Peter Diallo MD at 1:16 EDT Reading Location ID and State: [facility] / [place] Tel , Service support , Chest x-ray as interpreted by the emergency medicine physician reveals no acute infiltrate pneumothorax or pleural effusion Discharge Plan Triage Chief Complaint: General Illness ED Provider: Cresencio Smith Dx/Rx/DC Orders Clinical Impression: Viral upper respiratory tract infection, Depression Instructions: ED URI, Viral, No Abx (Adult) Prescriptions: New prednisone 20 mg tablet 40 mg PO DAILY 5 Days Qty: 10 0RF azelastine 137 mcg (0.1 %) aerosol,spray 2 spray intranasal BID Qty: 30 0RF Rx Instructions: administer into each nostril promethazine-codeine 6.25-10 mg/5 mL syrup 5 ml PO 4X/DAY PRN PRN (Reason: cough) 7 Days Qty: 140 0RF promethazine-codeine 6.25-10 mg/5 mL syrup 5 ml PO 4X/DAY PRN PRN (Reason: cough) 7 Days Qty: 140 0RF No Action Liletta 20.1 mcg/24 hrs (6 yrs) 52 mg intrauterine device 1 device intrauterine ONCE Rx Instructions: as a single dose venlafaxine 225 mg tablet extended release 24hr 225 mg PO DAILY Qty: 90 3RF melatonin 3 MG tablet 6 mg PO QHS naproxen 250 MG tablet 250 - 500 mg PO Q8H PRN PRN (Reason: MILD PAIN) Qty: 30 1RF Stand Alone Forms: ED Work / School Excuse Primary Care Provider: Care Physician,No Primary Referrals: Suyapa Galloway MD [Med Staff - [employer]] - 1 Week if not improving Care Physician,No Primary [Primary Care Provider] - Disposition Disposition: Home, Self Care Discharge Date/Time: 06/16/22 02:28
== END 2022-06-16 02:28 | disposition home or self-care (01) ==
PROVIDERS: Emergency Provider Emergency Medicine; Visit Provider Emergency Medicine
DX: J06.9 Acute upper respiratory infection, unspecified (principal); F17.290 Nicotine dependence, other tobacco product, uncomplicated; Z79.52 Long term (current) use of systemic steroids
CPT/HCPCS: 71045; 87428; 99284

== ENCOUNTER → 2022-07-28 | Outpatient (CLI) | payer MEDICAID, SELFPAY | END | disposition home or self-care (01) | LOC: LABSPEC 13:33 | PROVIDERS: Visit Provider Nurse Practitioner Women's Health | DX: N89.8 Other specified noninflammatory disorders of vagina (principal) | CPT/HCPCS: 87070; 87205 ==

== ENCOUNTER 2022-10-06 16:46 | Emergency (ER) | payer MEDICAID, SELFPAY ==
[2022-10-06 16:47] VITALS: BP 128/76; PULSE 94; RESP 16; TEMP 36.4; O2SAT 100; BMI 43.6
--- NOTE | 2022-10-06 16:59 | EKG12_ITS ---
Test Reason : SOB Blood Pressure : / mmHG Vent. Rate : 073 BPM Atrial Rate : 073 BPM P-R Int : 184 ms QRS Dur : 080 ms QT Int : 354 ms P-R-T Axes : 052 067 047 degrees QTc Int : 389 ms Normal sinus rhythm Low voltage QRS Borderline ECG Confirmed by SABAS CORNEJO, COTY ([id number]), film and video editor TIMOTHY MURRY ([id number]) on 10/07/2022 10:41:13 AM Referred By: Confirmed By:COTY OBREGON MD
--- NOTE | 2022-10-06 17:06 | RAD_ITS ---
INDICATION: sob EXAMINATION/TECHNIQUE: X-RAY - XR Chest 1 View COMPARISON: 06/16/2022 FINDINGS: LIFE-SUPPORT AND LINES: 1. None HEART AND VESSELS: The cardiac silhouette, pulmonary vasculature have normal appearance. No evidence of congestive failure. LUNGS AND PLEURAL SPACES: Minimal basilar atelectasis, no focal infiltrate consolidation or effusion. No pulmonary mass is noted. MEDIASTINUM AND HILAR REGIONS: No masses adenopathy noted. No areas of calcification. Visualized upper airway is normal in position. BONY ELEMENTS: No acute bony changes noted. RAD/Chest 1 View (Portable) IMPRESSION: 1. Minimal basilar atelectasis, no focal infiltrate consolidation or effusion. Electronically Signed: Juan Quevedo MD at 17:33 EST ,
[2022-10-06 17:46] LABS: Absolute Lymphocyte Count 2.41 X10^3/uL (0.83-4.51); Absolute Neutrophil Count 6.4 X10^3/uL (2.0-7.7); Basophil# 0.02 X10^3/uL; Basophil% 0.2 % (0-1); Eosinophil# 0.63 X10^3/uL; Eosinophils% 6.1 % (0-5); Hematocrit 43.7 % (37-47); Hemoglobin 14.1 g/dL (12.0-15.0); Lymphocyte # 2.41 X10^3/ul (0.83-4.51); Lymphocyte % 23.3 % (19-41); Mean Corp Hgb Conc 32.3 g/dL (32-36); Mean Corpuscular Hgb 29.2 pg (27.0-32.0); Mean Corpuscular Volume 90.5 fL (81-99); Mean Platelet Vol. 11.8 fl (6.2-12.0); Monocyte# 0.89 X10^3/uL; Monocyte% 8.6 % (0-10); NRBC Flagged by Analyzer 0 % (0-5); Neutrophil # 6.35 X10^3/uL (2.7-7.7); Neutrophil % 61.5 % (47-70); Platelet Count 205 K/mm3 (150-450); RBC Distribution Width CV 13.1 % (11.6-14.6); RBC Distribution Width SD 43.4 fl (35.1-43.9); Red Blood Count 4.83 M/mm3 (4.2-5.4); White Blood Count 10.3 K/mm3 (4.4-11.0)
--- NOTE | 2022-10-06 18:00 | EX.ED.VIS.UR ---
HPI HPI - URI History of Present Illness Chief Complaint: Shortness of Breath Detail of Chief Complaint: Dyspnea with exertion and cold symptoms, fevers Informant: patient Onset/Context/Timing Onset: Yesterday Context: Gradual Onset Timing: Intermittent Quality: GEORGE Current Severity: Mild Maximum Severity: Mild Worsened by: - (Exertion especially walking upstairs) Relieved by: - (Resting) Associated Symptoms Associated Symptoms: Positive for Nasal Congestion, Headache, Myalgias, Nausea, Vomiting, Diarrhea, Shortness of Breath and Productive Cough (Occasional small amounts yellow sputum no blood); Negative for Sinus Pressure or Chest Pain Narrative Narrative: Patient started getting ill yesterday. Positive sick contacts lately, children. They were not tested. She is vaccinated against COVID and influenza and otherwise healthy. She denies any history of DVT or PE, recent travel out of the area, no recent surgery or hospitalization within the last couple months, or other reasons to be immobilized. She has had some mild dyspnea with exertion when she exerts herself which is unusual for her. She denies any wheezing or chest discomfort when this occurs, no near-syncope or syncope. No unilateral leg pain or swelling. The dyspnea started after the illness symptoms and fevers, and she does not have it when she is resting. ROS ROS ED Constitutional Constitutional ED: Reports body ache(s), chills, fatigue, fever(s), headache(s) and malaise Eyes Eyes: Denies change in vision or diplopia ENT ENT ED: Denies rhinorrhea or sore throat Cardiovascular Cardiovascular: Denies chest pain, leg edema, lightheadedness or palpitations Respiratory/Chest Respiratory/Chest: Reports cough, dyspnea and dyspnea on exertion Gastrointestinal Gastrointestinal: Reports diarrhea, nausea and vomiting; Denies abdominal pain Genitourinary Genitourinary ED: Denies dysuria or hematuria Musculoskeletal Musculoskeletal: Reports myalgias; Denies back pain or neck pain Integumentary Denies abscess or rash Neurologic Neurologic: Reports headache(s); Denies paresthesias or weakness Psychiatric Psychiatric: Denies anxiety or suicidal thoughts [facility] Medical History (Updated 10/06/22 @ 19:[address] Jerry Fofana MD) Depression History of gestational diabetes Home Medications melatonin 3 mg tablet 6 mg PO QHS 08/11/20 [History Last Taken Unknown] levonorgestrel 20.4 mcg/24 hrs (8 yrs) 52 mg intrauterine device (Liletta) 1 device intrauterine ONCE 04/23/21 [History Last Taken Unknown] albuterol sulfate 90 mcg/actuation aerosol inhaler (Ventolin HFA) 1 - 2 puff inhalation Q4H PRN PRN Wheezing ##1 10/06/22 [Rx Last Taken Unknown] Allergy/AdvReac Type Severity Reaction Status Date / Time pollen extracts Allergy Other Verified 10/06/22 16:49 Family History Mother Diabetes Surgical History S/P bilateral salpingo-oophorectomy Social History Smoking Status: Current every day smoker tobacco type: e-cigarettes Electronic Cigarette Use: with nicotine alcohol intake: current details: occasionally substance use type: does not use caffeine: Yes what type of physical activity do you participate in: walking frequency: 3-4 times per week seatbelt use: always do you feel safe at home: Yes additional social history: -Boyfriend Patient is unemployed EXAM Physical Exam Const Vital Signs: 10/06/22 16:47 10/06/22 18:48 10/06/22 18:48 Temperature 97.5 F L Temperature Source Temporal Pulse Rate 94 72 Respiratory Rate 16 18 Respiratory Effort Respiratory Pattern Blood Pressure 128/76 H Blood Pressure Mean 93 Pulse Ox 100 100 100 Oxygen Delivery Method Room Air Room Air Room Air 10/06/22 18:48 Temperature Temperature Source Pulse Rate Respiratory Rate Respiratory Effort Non-Labored Respiratory Pattern Normal Blood Pressure Blood Pressure Mean Pulse Ox Oxygen Delivery Method Positive well nourished, well developed and obese Constitutional Narrative: Well-appearing, no distress General Appearance ED: well developed and NAD Nutritional Appearance: obese HEENT Reports moist mucous membranes normocephalic and atraumatic Eyes PERRL and EOMs intact bilaterally Neck full ROM, no lymphadenopathy, supple, no meningeal signs and no JVD Resp normal respiratory effort and clear to auscultation bilaterally Effort and Inspection: able to speak in complete sentences Cardio regular rate, regular rhythm and no murmurs Rate: Negative for tachycardic GI non-tender and non-distended Auscultation: normoactive bowel sounds Palpation: soft Back/Spine no CVA tenderness General Back: other FROM Extremity normal to inspection and no calf tenderness General Extremety ED: Negative for edema, pulses abnormal or tenderness General Extremity: Negative for edema or pulses abnormal Neuro oriented x3, CN's II-XII intact bilaterally and no sensory deficits noted Sensorium / Orientation: awake and alert Motor Exam: strength 5/5 throughout Psych mental status grossly normal Skin no rashes or lesions noted and no wounds MDM MDM MDM Narrative Medical decision making narrative: Patient's work-up is unremarkable. She does not have a leukocytosis or bandemia, her EKG is normal on my interpretation, her chest x-ray 1 view on my interpretation is normal with radiology in agreement, and her COVID and influenza returned negative. Since she has an illness, I do not think her dyspnea is caused by pulmonary embolus. She does not have a PERC score of 0 because she has a Mirena in, but I do not think she needs to be worked up for that especially since she has a pulse oximetry of 100% room air and is not tachycardic. I will prescribe her an albuterol inhaler to use as needed, but at this time I see no indication for antibiotics, there has been a high prevalence of viral illness in the area at this time and she likely has that although it is not COVID or influenza. Supportive care advised otherwise. Lab Data Attestation: I reviewed the patient's lab results. Labs: Laboratory Results - last 24 hr 10/06/22 10/06/22 17:32 17:32 WBC 10.3 RBC 4.83 Hgb 14.1 Hct 43.7 MCV 90.5 MCH 29.2 MCHC 32.3 RDW Std Deviation 43.4 RDW Coeff of Allan 13.1 Plt Count 205 MPV 11.8 Immature Gran % (Auto) 0.300 Neut % (Auto) 61.5 Lymph % (Auto) 23.3 Starke % (Auto) 8.6 Eos % (Auto) 6.1 H Baso % (Auto) 0.2 Absolute Neuts (auto) 6.4 Absolute Lymphs (auto) 2.41 Nucleated RBC % 0 Sodium 139 Potassium 4.5 Chloride 108 H Carbon Dioxide 30.0 Anion Gap 1 L BUN 7 Creatinine 0.72 Estim Creat Clear Calc 100.94 Est GFR (MDRD) Af Amer 121 Est GFR (MDRD) Non-Af 100 BUN/Creatinine Ratio 9.8 L Glucose 88 Calcium 8.7 Radiography Diagnostic Testing: Clinical Impression(s) from Imaging Studies Chest X-Ray 10/06/22 17:06 IMPRESSION: 1. Minimal basilar atelectasis, no focal infiltrate consolidation or effusion. Electronically Signed: Juan Quevedo MD at 17:33 EST , Rhythm Strip Rhythm Strip: Sinus Rhythm Rate: 75 Ectopy: None EKG Initial EKG: Attestation: I personally reviewed and interpreted this EKG as follows: Interpretation: Sinus Rhythm and No Acute Injury Pattern Comments: normal EKG Discharge Plan Triage Chief Complaint: Shortness of Breath ED Provider: Jerry Fofana Dx/Rx/DC Orders Clinical Impression: Acute bronchitis, viral, Dyspnea on exertion Instructions: Acute Bronchitis Prescriptions: New albuterol sulfate [Ventolin HFA] 90 mcg/actuation HFA aerosol inhaler 1 - 2 puff inhalation Q4H PRN PRN (Reason: Wheezing) Qty: 1 0RF No Action Liletta 20.1 mcg/24 hrs (6 yrs) 52 mg intrauterine device 1 device intrauterine ONCE Rx Instructions: as a single dose melatonin 3 MG tablet 6 mg PO QHS Stand Alone Forms: ED Work / School Excuse Primary Care Provider: Care Physician,No Primary Referrals: Doctor,Your [Non-Staff] - 1 Week if not improving Disposition Disposition: Home, Self Care
[2022-10-06 18:02] LABS: Anion Gap 1 (5-15); BUN 7 mg/dL (7-18); BUN/Creat Ratio 9.8 RATIO (10-20); Calcium,Total 8.7 mg/dL (8.5-10.1); Chloride 108 mmol/L (98-107); Creatinine, Serum 0.72 mg/dL (0.55-1.02); EST Glomerular Filtration Rate 100 mL/min (>60); Est Glom Filt Rate - Afr Amer 121 mL/min (>60); Estimated Creatinine Clearance 100.94 ml/min; Glucose 88 mg/dL (74-106); Potassium 4.5 mmol/L (3.5-5.1); Sodium Level 139 mmol/L (136-145)
[2022-10-06] MEDS: Ondansetron 4 MG/2 ML Vial IV (18:43)
[2022-10-06] MEDS: Ketorolac 30 MG/ML Syringe IV (18:44)
[2022-10-06 18:48] VITALS: PULSE 72; RESP 18; O2SAT 100
[2022-10-06 19:50] VITALS: PULSE 79; O2SAT 94
== END 2022-10-06 20:09 | disposition home or self-care (01) ==
PROVIDERS: Emergency Provider Emergency Medicine; Visit Provider Emergency Medicine
DX: J20.9 Acute bronchitis, unspecified (principal); B34.9 Viral infection, unspecified; R11.2 Nausea with vomiting, unspecified; R19.7 Diarrhea, unspecified; Z20.822 Contact with and (suspected) exposure to COVID-19; E66.9 Obesity, unspecified; F17.290 Nicotine dependence, other tobacco product, uncomplicated; Z79.899 Other long term (current) drug therapy
CPT/HCPCS: 71045; 80048; 85025; 87428; 93005; 94760; 96361; 96374; 96375; 99283; J7040; J2405

== ENCOUNTER → 2023-01-11 | Outpatient (CLI) | payer MEDICAID, SELFPAY ==
[2023-01-12 22:07] LABS: Chlamydia By Nucleic Acid AMP Negative (Negative)
[2023-01-13 09:28] LABS: Gonococcus By Nucleic Acid AMP Negative (Negative)
== END | disposition home or self-care (01) ==
LOC: LABSPEC 10:10
PROVIDERS: Referring Provider Nurse Practitioner Women's Health; Visit Provider Nurse Practitioner Women's Health
DX: N89.8 Other specified noninflammatory disorders of vagina (principal)
CPT/HCPCS: 87070; 87205; 87491; 87591

== ENCOUNTER 2023-11-09 16:58 | Emergency (ER) | payer MEDICAID, SELFPAY ==
[2023-11-09 16:59] VITALS: BP 122/72; PULSE 92; RESP 14; TEMP 36.8; O2SAT 98; BMI 35.2
[2023-11-09 19:40] VITALS: RESP 16; O2SAT 97
--- NOTE | 2023-11-09 20:42 | EDS_ITS ---
HPI History of Present Illness Chief Complaint: Abscess Detail of Chief Complaint: Perirectal pain for 3 days. Informant: patient Onset/Context/Timing Onset: Days Context: Gradual Onset Timing: Continuous Current Severity: Mild Maximum Severity: Moderate Narrative Narrative: 32-year-old female no seen past medical history only prior surgery was a tubal ligation. Since since Tuesday she has had perirectal pain. No fever. Able to urinate and have bowel movements. No prior history. No instrumentation. Prior similar symptoms: No Recent Illness/Hospitalization: No PFSH PFSH Medical History Anxiety Depression History of gestational diabetes Smoker Home Medications melatonin 3 mg tablet 6 mg PO QHS 08/11/20 [History Last Taken Unknown] levonorgestrel 20.4 mcg/24 hrs (8 yrs) 52 mg intrauterine device (Liletta) 1 device intrauterine ONCE 04/23/21 [History Last Taken Unknown] cephalexin 500 mg capsule 500 mg PO Q6 #40 CAPSULES 11/09/23 [Rx Last Taken Unknown] Allergy/AdvReac Type Severity Reaction Status Date / Time pollen extracts Allergy Other Verified 11/09/23 17:00 Family History Mother Diabetes Surgical History S/P bilateral salpingo-oophorectomy Social History Smoking Status: Current every day smoker tobacco type: e-cigarettes Electronic Cigarette Use: with nicotine alcohol intake: current details: occasionally substance use type: does not use caffeine: Yes what type of physical activity do you participate in: walking frequency: 3-4 times per week seatbelt use: always do you feel safe at home: Yes additional social history: -Boyfriend Patient is unemployed ROS ROS ED ROS Narrative Denies recent illness. Denies fever. Review of Systems ROS Unobtainable: Denies due to encephalopathy Constitutional Constitutional ED: Denies fever(s) Eyes Eyes: Denies blurry vision ENT ENT ED: Denies ear pain Cardiovascular Cardiovascular: Denies chest pain Respiratory/Chest Respiratory/Chest: Denies cough or dyspnea Gastrointestinal Gastrointestinal: Denies abdominal pain Genitourinary Genitourinary ED: Denies dysuria or hematuria Musculoskeletal Musculoskeletal: Denies arthralgias Integumentary Denies Abrasions Neurologic Neurologic: Denies headache(s) Psychiatric Psychiatric: Denies anxiety Endocrine Endocrinology: Denies cold intolerance Hematologic/Lymphatic Hematologic/Lymphatic: Reports none Allergic/Immunologic Allergic/Immunologic ED: Denies mouth swelling, tongue swelling or urticaria EXAM Physical Exam Narrative Exam Narrative: 32-year-old female with stable vital signs. Afebrile. Does not look septic or toxic. No distress. H EENT exam unremarkable. Neck nontender no lymphadenopathy. Lungs clear to auscultation. Heart regular rhythm no murmur. Abdomen soft nontender. Moving all 4 extremities. Back nontender. On the lower aspect of her buttock cleft superior and lateral to the anus there is a dime to quarter sized either abscess or cyst. Is tender to palpation. No active drainage or bleeding. No surrounding cellulitis. Otherwise patient is awake and alert. Answering questions following commands. Normal motor strength. Const Vital Signs: 11/09/23 16:59 11/09/23 19:40 Temperature 98.3 F Temperature Source Temporal Pulse Rate 92 Respiratory Rate 14 16 Blood Pressure 122/72 H Blood Pressure Mean 88 Pulse Ox 98 97 Oxygen Delivery Method Room Air Positive well nourished and well developed; Negative for cachectic, contractures or unkempt General Appearance ED: well developed and NAD; Negative for unkempt, cachectic, contractures, cyanotic, diaphoretic or pallor Nutritional Appearance: Negative for cachectic HEENT Reports moist mucous membranes Eyes PERRL and EOMs intact bilaterally General Eye ED: Negative for pale conjunctiva, scleral icterus or other Neck no lymphadenopathy, supple and no JVD General: Negative for tenderness Lymph Lymphatic: Negative for other Chest Wall inspection of chest normal and palpation of chest normal Chest: Negative for other Resp normal respiratory effort Effort and Inspection: Negative for retractions Auscultation: Negative for rales, rhonchi or wheezes Cardio regular rate, regular rhythm, S1 normal heart sound, S2 normal heart sound and no murmurs Palpation: Negative for palpable S3 or palpable S4 Rate: Negative for bradycardia or tachycardic Rhythm: Negative for abnormal rhythm GI normal to inspection, nondistended, normoactive bowel sounds, non-tender, non- distended and no masses Inspection: Negative for abdominal distention Auscultation: normoactive bowel sounds Palpation: soft; Negative for tender or guarding Back/Spine no CVA tenderness General Back: Negative for CVA tenderness Cervical Spine: Negative for cervical spine tenderness Thoracic Spine / Upper Back: Negative for thoracic spinal tenderness or paraspinal muscle tenderness Lumbar Spine / Lower Back: Negative for lumbar spinal tenderness Extremity General Extremety ED: Negative for edema or tenderness General Extremity: Negative for edema Neuro oriented x3 and CN's II-XII intact bilaterally Sensorium / Orientation: alert; Negative for orientation impaired, lethargic or stuporous Motor Exam: strength 5/5 throughout Psych mental status grossly normal Appearance: Negative for unkempt Attitude: No agitated Mood & Affect: Negative for depressed, anxious or tearful Skin no rashes or lesions noted, no wounds and skin turgor normal General Skin Exam: Negative for jaundice or pallor Trauma: Negative for abrasion MDM MDM MDM Narrative Medical decision making narrative: Healthy 32-year-old female with a perianal abscess. Will be local anesthetized and I&D. Patient doing well on repeat exam. Feeling better after incision and drainage. Outpatient follow-up. I do a general surgery on page to ensure close follow-up. Limited Percocet 10 no refill for pain. Discharged home on Keflex 4 times a day for 10 days. Procedures Other Procedures Procedure(s): Right buttock abscess superior and lateral to the anal this. Rectal exam showed no involvement with the rectum. Let and local anesthetized with lidocaine. I made about a half to a three-quarter inch incision. Expressed about 3+ cc of pus. Irrigated the area. And placed about 1 to 2 inches of half-inch packing material. It was in a deep cavity. She tolerated it well. She was given instructions and close follow-up with general surgery. Discharge Plan Triage Chief Complaint: Abscess ED Provider: Clayton Cardenas Dx/Rx/DC Orders Clinical Impression: Abscess of buttock Instructions: ED Abscess Incision And Drainage Prescriptions: New cephalexin 500 mg capsule 500 mg PO Q6 Qty: 40 0RF No Action Liletta 20.1 mcg/24 hrs (6 yrs) 52 mg intrauterine device 1 device intrauterine ONCE Rx Instructions: as a single dose melatonin 3 MG tablet 6 mg PO QHS Primary Care Provider: Care Physician,No Primary Referrals: Elicia Brandon MD [Med Staff - Active Staff] - As soon as possible Care Physician,No Primary [Primary Care Provider] - Activity Restrictions/Additional Instructions: Warm bath water soaks. We want this to keep draining. A draining abscess and did express 3 to 5 cc of pus. If the packing falls out leave it out if it does not fall off pulled out in 4 days. Call and follow-up with Dr. Vanna Brandon local general surgeon who can do further evaluation of this. And will determine if it needs any further surgery. She should see you in the next several days and no later than Tuesday. Motrin and limited Percocet for pain. Return if fever or feeling worse or if the area looks a lot worse. The antibiotic Keflex 1 pill 4 times a day for 10 days till gone. Disposition Disposition: Home, Self Care
[2023-11-09] MEDS: Cephalexin 250 MG Capsule 500 MG PO (23:18)
[2023-11-09] MEDS: Oxycodone/Apap 5/325 Tablet PO (23:19)
[2023-11-09] MEDS: Lidocaine 1% (20 ml mdv) 20 ML Vial 10 ML INFILT (23:21)
[2023-11-09] MEDS: Lidocaine/Epi/Tetracaine 50 ML 1 APPLIC TOPICAL (23:29)
[2023-11-09 23:30] VITALS: BP 120/71; PULSE 74; RESP 16; O2SAT 98
== END 2023-11-09 23:31 | disposition home or self-care (01) ==
PROVIDERS: Emergency Provider Emergency Medicine; Visit Provider Emergency Medicine
DX: L02.31 Cutaneous abscess of buttock (principal); F17.290 Nicotine dependence, other tobacco product, uncomplicated
CPT/HCPCS: 10061; 10060; 99283

== ENCOUNTER → 2023-11-16 | Outpatient (CLI) | payer MEDICAID, SELFPAY ==
[2023-11-20 08:08] LABS: Chlamydia By Nucleic Acid AMP Negative (Negative); Gonococcus By Nucleic Acid AMP Negative (Negative)
== END | disposition home or self-care (01) ==
LOC: LABSPEC 13:28
PROVIDERS: Referring Provider Nurse Practitioner Women's Health; Visit Provider Nurse Practitioner Women's Health
DX: Z11.3 Encounter for screening for infections with a predominantly sexual mode of transmission (principal)
CPT/HCPCS: 87491; 87591

== ENCOUNTER 2024-08-23 00:17 | Emergency (ER) | payer MEDICAID, SELFPAY ==
[2024-08-23 00:21] VITALS: BP 138/78; PULSE 75; RESP 18; TEMP 36.8; O2SAT 99; BMI 36.5
[2024-08-23] MEDS: Clindamycin HCl 150 MG Capsule 300 MG PO (00:50)
[2024-08-23] MEDS: oxyCODONE 5 MG Tablet 10 MG PO (00:50)
[2024-08-23 00:51] VITALS: BP 108/64; PULSE 70; RESP 16; TEMP 36.6; O2SAT 98
== END 2024-08-23 00:56 | disposition home or self-care (01) ==
LOC: ED 00:56
PROVIDERS: Emergency Provider Emergency Medicine; Visit Provider Emergency Medicine
DX: K04.7 Periapical abscess without sinus (principal); K02.9 Dental caries, unspecified; F17.290 Nicotine dependence, other tobacco product, uncomplicated; F41.9 Anxiety disorder, unspecified; F32.A Depression, unspecified
CPT/HCPCS: 99283

== ENCOUNTER 2025-01-18 15:58 | Emergency (ER) | payer MEDICAID, SELFPAY ==
[2025-01-18 16:00] VITALS: BP 125/63; PULSE 78; RESP 18; TEMP 35.9; O2SAT 97; BMI 33.7
[2025-01-18] MEDS: Ibuprofen 600 MG Tablet PO (16:54)
[2025-01-18] MEDS: Amox/Clavulanate 875 MG Tablet PO (16:54)
--- NOTE | 2025-01-18 16:56 | ED.RN ---
pt's significant other states i dont mean to sound like a juliann, but is there a special pharmacy or something that you had to go to to get this meds, we've been waiting a while.
--- NOTE | 2025-01-18 17:00 | EDS_ITS ---
HPI History of Present Illness Chief Complaint: Dental Informant: patient Narrative Narrative: Patient is 34-year-old female with history of tobacco use (vapes) presenting with right lower dental pain as well as jaw swelling. Has been having symptoms for 2 to 3 days. She was placed on amoxicillin yesterday and has had 3 doses total. When she woke up today she had increased pain and swelling of her right lower jaw. She reports objective fever and chills. She had [id number] pain medication earlier today for symptoms but none recently. She has at this appointment but is over a month away. She is planning on trying to be seen at the [place] walk-in dental clinic but came in today for further evaluation. Denies any difficulty swallowing or change in her speech. No other complaints or concerns reported at this time. [facility] Medical History Abscess of buttock Anxiety Smoker Depression History of gestational diabetes Home Medications ?Medication ?Instructions ?Recorded ?Last Taken ?Type oxycodone-acetaminophen 5 mg-325 1 tab PO Q6H PRN pain 3 days #12 08/23/24 Unknown Rx mg tablet (Percocet) tabs amoxicillin 875 mg-potassium 1 tab PO Q12H #20 tabs Unknown Rx clavulanate 125 mg tablet ibuprofen 600 mg tablet 600 mg PO Q6H PRN PRN pain # 20 01/18/25 Unknown Rx TABLETS Allergy/AdvReac Type Severity Reaction Status Date / Time pollen extracts Allergy Other Verified 01/18/25 15:59 Family History Mother Diabetes Surgical History S/P bilateral salpingo-oophorectomy Social History Smoking Status: Current every day smoker tobacco type: e-cigarettes Electronic Cigarette Use: with nicotine alcohol intake: current details: occasionally substance use type: does not use caffeine: Yes what type of physical activity do you participate in: walking frequency: 3-4 times per week seatbelt use: always do you feel safe at home: Yes additional social history: -Boyfriend Patient is unemployed [facility] ED Constitutional Constitutional ED: Reports chills, fever(s) and subjective ENT ENT ED: Reports other Details: Right lower jaw swelling and dental pain Cardiovascular Cardiovascular: Denies chest pain Respiratory/Chest Respiratory/Chest: Denies cough or dyspnea Gastrointestinal Gastrointestinal: Denies nausea or vomiting Neurologic Neurologic: Denies paresthesias EXAM Physical Exam Const Vital Signs: 01/18/25 16:00 Temperature 96.6 F L Temperature Source Temporal Pulse Rate 78 Respiratory Rate 18 Blood Pressure 125/63 H Blood Pressure Mean 83 Pulse Ox 97 Oxygen Delivery Method Room Air HEENT HEENT Narrative: Normal oropharynx. Normal tympanic membranes bilaterally. There is swelling noted over the right mandible with some overlying erythema and mild induration. No palpable fluctuance is appreciated. On dental exam patient has multiple caries. Of her right 1st and 2nd molars there are cracked/defects. There are some mild swelling of the gingiva at the base of tooth 30 but no obvious fluctuance or abscess amenable to drainage at this time. No trismus present. The sublingual mucosa is soft. Eyes EOMs intact bilaterally Neck no lymphadenopathy and supple Chest Wall inspection of chest normal Resp normal respiratory effort and clear to auscultation bilaterally Cardio regular rate and regular rhythm Neuro oriented x3 Sensorium / Orientation: alert Motor Exam: Negative for general weakness Psych mental status grossly normal MDM MDM MDM Narrative Medical decision making narrative: Patient is evaluated for increased dental pain and jaw swelling. She started on amoxicillin 875 mg twice daily yesterday. She has had 3 doses total. But she is not technically failed the amoxicillin given that she is having worsening of her symptoms will change her to Augmentin for better anaerobic coverage. Is given first dose in the emergency room. She is also started on Motrin 600 mg. Is given a work note. At this time I do not think requires imaging or IV antibiotics. Given return precautions. Will follow-up outpatient with dentist. Discharged home in stable condition. Discharge Plan Triage Chief Complaint: Dental ED Provider: Pavithra Ruiz Dx/Rx/DC Orders Clinical Impression: Abscess, dental Instructions: ED Dental Abscess Facial Cellulitis Prescriptions: New amoxicillin-pot clavulanate 875-125 mg tablet 1 tab PO Q12H Qty: 20 0RF ibuprofen 600 mg tablet 600 mg PO Q6H PRN PRN (Reason: pain) Qty: 20 0RF Discontinued amoxicillin 500 mg capsule 500 mg PO TID Patient Comments: pt. has had the Rx since 06/29/2024 and has not been taking consistently clindamycin HCl 300 mg capsule 300 mg PO 4X/DAY 10 Days Qty: 40 0RF No Action oxycodone-acetaminophen [Percocet] 5-325 mg tablet 1 tab PO Q6H PRN (Reason: pain) 3 Days Qty: 12 0RF Stand Alone Forms: ED Work / School Excuse Primary Care Provider: Care Physician,No Primary Referrals: Care Physician,No Primary [Primary Care Provider] - Activity Restrictions/Additional Instructions: Follow-up with dentist as we discussed. Stop taking amoxicillin and start taking the Augmentin. Also prescribed Motrin for pain. Return if your symptoms are progressing or worsening especially after 4 doses of antibiotics. Print Language: Upper Sorbian Disposition Disposition: Home, Self Care Discharge Date/Time: 01/18/25 17:08
== END 2025-01-18 17:08 | disposition home or self-care (01) ==
PROVIDERS: Emergency Provider Emergency Medicine; Visit Provider Emergency Medicine
DX: K04.7 Periapical abscess without sinus (principal); F17.290 Nicotine dependence, other tobacco product, uncomplicated
CPT/HCPCS: 99283

== ENCOUNTER 2025-01-19 17:39 | Emergency (ER) | payer MEDICAID, SELFPAY ==
[2025-01-19 17:40] VITALS: BP 127/68; PULSE 75; RESP 14; TEMP 36.6; O2SAT 98; BMI 33.9
[2025-01-19] MEDS: Clindamycin HCl 150 MG Capsule 450 MG PO (18:18)
[2025-01-19] MEDS: HYDROcodone Bitartrate/Apap 5/325 Tablet PO (18:18)
[2025-01-19 18:24] VITALS: BP 138/70; PULSE 65; RESP 18; TEMP 36.6; O2SAT 99
--- NOTE | 2025-01-19 18:29 | EDS_ITS ---
HPI History of Present Illness Chief Complaint: Dental Narrative Narrative: Chief complaint and HPI: Dental infection. 34-year-old female with history of tobacco use presents for evaluation of right lower dental pain. Patient was seen in our emergency department yesterday for same complaint and discharged home after changing antibiotics. Patient has known history of recurrent dental infections. Patient states about 4 days ago she developed right lower dental pain and swelling. She was seen in urgent care and placed on amoxicillin. She states that she continued to have pain and swelling so she was seen yesterday in our emergency department and was placed on Augmentin. Patient states she has taken 3 doses of this. She states she has continued to have pain and swelling in this area which is why she represents. She denies any fevers. Denies any difficulty in swallowing or changes in speech. She has been using ibuprofen and Orajel. She denies any nausea, vomiting, headache, neck pain. Review of systems: See HPI Medications: As listed on the chart Allergies: As listed on the chart PFSH: Per chart Vital signs: As listed on the chart. Reviewed. Physical exam: Gen: A&O x3, NAD Head: Normocephalic, atraumatic Eyes: No sclera icterus, conjunctiva clear, PERRL, EOMI ENT: TMs clear BL, moist mucous membranes, posterior oropharynx unremarkable, uvula midline, patient has localized swelling of the right mandible that overlies the gingiva where she is swollen. No erythema or fluctuance. Patient has poor dentition with multiple dental caries. She has gingival swelling at the base of tooth #30 but no fluctuance or abscess. No trismus. No tongue enlargement or swelling. No submandibular or sublingual swelling. Tolerating secretions. Normal phonation. Neck: Trachea midline, No JVD, Full ROM, No meningismus, no lymphadenopathy CV: RRR, no murmurs Resp: Lungs CTA BL, no w/r/c, no stridor Skin: Warm, dry, no rash Neuro: Alert, oriented, grossly intact, sensation intact Psych: Cooperative, appropriate mood and affect [facility] Medical History Abscess of buttock Anxiety Smoker Depression History of gestational diabetes Home Medications ?Medication ?Instructions ?Recorded ?Last Taken ?Type ibuprofen 600 mg tablet 600 mg PO Q6H PRN PRN pain # 20 04/04/25 Unknown Rx TABLETS clindamycin HCl 300 mg capsule 300 mg PO Q6H 7 days #2 8 caps 01/19/25 Unknown Rx hydrocodone-acetaminophen 5-325mg 1 tab PO Q6H PRN PRN Pain 3 days 01/19/25 Unknown Rx 5mg-325mg #10 TABLETS Allergy/AdvReac Type Severity Reaction Status Date / Time pollen extracts Allergy Other Verified 01/19/25 17:42 Family History Mother Diabetes Surgical History S/P bilateral salpingo-oophorectomy Social History Smoking Status: Current every day smoker tobacco type: e-cigarettes Electronic Cigarette Use: with nicotine alcohol intake: current details: occasionally substance use type: does not use caffeine: Yes what type of physical activity do you participate in: walking frequency: 3-4 times per week seatbelt use: always do you feel safe at home: Yes additional social history: -Boyfriend Patient is unemployed EXAM Physical Exam Const Vital Signs: 01/19/25 17:40 01/19/25 18:24 Temperature 97.9 F 98 F Temperature Source Temporal Pulse Rate 75 65 Respiratory Rate 14 18 Blood Pressure 127/68 H 138/70 H Blood Pressure Mean 87 92 Pulse Ox 98 99 Oxygen Delivery Method Room Air MDM MDM MDM Narrative Medical decision making narrative: 34-year-old female with history of tobacco use presents for evaluation of right lower dental pain. Patient was originally started on amoxicillin but seen in our emergency department yesterday and started on Augmentin. Given that patient has only received 3 doses total of Augmentin, she has not technically failed however given that she still not having an improvement in her symptoms we will stop Augmentin and start clindamycin. She will be given her first dose here in the emergency department. She was educated to continue the ibuprofen as well as Orajel. Will give her a [place] here in the emergency department and write her a short prescription for severe pain as needed at home. I do not think any laboratory workup, imaging or IV antibiotics are needed at this time. Follow-up with her dentist. She was also given outpatient dental clinics in case she cannot be seen quick enough by her dentist. Return precautions were explained. She is comfortable with the plan and discharging home. Impression: 1. Right dental infection. Discharge Plan Triage Chief Complaint: Dental ED Provider: Saul Mack Dx/Rx/DC Orders Clinical Impression: Dental infection Instructions: ED Dental Pain Prescriptions: New clindamycin HCl 300 mg capsule 300 mg PO Q6H 7 Days Qty: 28 0RF hydrocodone-acetaminophen 5-325 mg tablet 1 tab PO Q6H PRN PRN (Reason: Pain) 3 Days Qty: 10 0RF Discontinued oxycodone-acetaminophen [Percocet] 5-325 mg tablet 1 tab PO Q6H PRN (Reason: pain) 3 Days Qty: 12 0RF amoxicillin-pot clavulanate 875-125 mg tablet 1 tab PO Q12H Qty: 20 0RF No Action ibuprofen 600 mg tablet 600 mg PO Q6H PRN PRN (Reason: pain) Qty: 20 0RF Primary Care Provider: Care Physician,Violeta Primary Referrals: Follow-up with your dentist [Other] - As soon as possible Miguel A Hilton MD [Med Staff - Active Staff] - 3-5 Days Activity Restrictions/Additional Instructions: Continue ibuprofen and Orajel. Continue ice. Return back to the ED if symptoms worsen. Follow-up with the dentist. You received your first dose of clindamycin here in the emergency department. You received narcotic care in the emergency department. No narcotic for 6 hours. Print Language: Lao Disposition Disposition: Home, Self Care Discharge Date/Time: 01/19/25 18:25
== END 2025-01-19 18:25 | disposition home or self-care (01) ==
PROVIDERS: Emergency Provider Surgery; Visit Provider Surgery
DX: K04.7 Periapical abscess without sinus (principal); F17.210 Nicotine dependence, cigarettes, uncomplicated
CPT/HCPCS: 99283